=== PATIENT | male | born 1935 | race Caucasian/White ===

== ENCOUNTER 2018-02-02 13:02 | Inpatient (IN) ==
--- NOTE | 2018-02-02 13:15 | Emergency Department Note ---
Disposition Clinical Impression: Sepsis due to pneumonia, Acute kidney injury, Mucus plugging of bronchi, Supratherapeutic INR Leukocytosis Qualifiers: Leukocytosis type: unspecified Qualified Code(s): D72.829 - Elevated white blood cell count, unspecified Disposition: Admitted As Inpatient Condition: Fair Referrals: NONE,PCP [Non-Partnered Physician] - Time of Disposition: 15:25 Altered Mental Status HPI - General Stated Complaint: AMS Time Seen by Provider: 02/02/18 13:06 Source: patient, EMS Mode of arrival: EMS Limitations: physical limitation Nursing Notes Reviewed: Yes Vital Signs Reviewed: Yes - History of Present Illness HPI Narrative: Patient sent from the [facility] for altered mentation. He is not able to baseline. Was recently diagnosed with a suspected left lower lung pneumonia and was treated with Rocephin and Levaquin. Concern was conveyed that his PT/INR was greater than 10. The patient is alert upon arrival and denies pain. He is oriented to person but confused to place and time. Coarse non productive cough identified MD complaint: altered mental status - Related Data Home Medications Medication Instructions Recorded Confirmed Glimepiride [Amaryl] 2 mg PO 0800 01/21/16 01/21/16 Allergies Allergy/AdvReac Type Severity Reaction Status Date / Time No Known Allergies Allergy Verified 01/21/16 09:12 Limitations: ROS unobtainable due to patients medical condition Past Medical History - Past Medical History Source: old records reviewed Medical history: Reports: atrial fibrillation, cancer, DVT, diabetes, GERD, hyperlipidemia, hypertension, myocardial infarction, pulmonary embolus Surgical history: Reports: angioplasty/stent, IVC Filter, knee replacement, pacemaker/AICD Psychiatric history: Reports: no psych history - Social History Smoking Status: Former smoker Smokeless Tobacco Status: No Alcohol use: Reports: none Drug use: Reports: none Physical Exam Course nonproductive cough. - General Limitations: altered mental status, physical limitation General appearance: alert - Head Head exam: atraumatic - ENT ENT exam: normal exam - Neck Neck exam: Present: normal inspection, full ROM - Chest Chest inspection: Present: normal inspection, symmetric chest wall rise - Respiratory Respiratory exam: Present: other (Course crackles. 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 Absent: oriented X3 - Psychiatric Psychiatric exam: Present: flat affect - Skin Skin exam: Present: warm, dry, intact Course Course Narrative: Patient presents with altered mentation. He was being treated for pneumonia at the [facility] [place]. His INR was supratherapeutic prehospital. Concern for pneumonia and sepsis. I will also obtain a CT of his head given his supratherapeutic INR and concern for possible occult intracranial bleed. The patient will likely require admission - Consultations Consultation #1: call placed to inhouse pharmacist to discuss antibiotic options for healthcare associated pneumonia given his elevated PT/INR Consultation #2: Call placed to pulmonology on-call to discuss the possible need for bronchoscopy. Dr. Sanchez recleatha BIPAP and stepdown admission Vital Signs Temperature 98.1 F 02/02/18 13:05 Pulse Rate 70 02/02/18 13:05 Respiratory Rate 22 02/02/18 13:05 Blood Pressure 105/44 02/02/18 13:05 O2 Sat by Pulse Oximetry 99 02/02/18 13:05 Temperature 98.1 F 02/02/18 13:05 Pulse Rate 60 02/02/18 14:49 Respiratory Rate 16 02/02/18 14:49 Blood Pressure 108/44 02/02/18 14:49 O2 Sat by Pulse Oximetry 100 02/02/18 14:49 Oxygen Delivery Oxygen Delivery Nasal Cannula Altered Mental Status - Medical Records Medical records reviewed: Yes I reviewed the patient's medical records. - Lab Data Lab results reviewed: Yes I reviewed the patient's lab results. Result diagrams: 02/02/18 14:02 02/02/18 14:02 Lab Results 02/02/18 02/02/18 02/02/18 Range/Units 13:33 13:42 14:02 WBC 61.2 H* (4.3-11.1) K/mcL RBC 3.56 L (4.19-5.50) M/mcL Hgb 10.2 L (12.9-16.9) g/dL Hct 35.7 L (37.5-50.1) % MCV 100.3 H (83.0-100.0) fL MCH 28.7 (28.0-33.3) pg MCHC 28.6 L (31.6-35.5) g/dL RDW 15.7 H (11.5-14.5) % Plt Count 474 H (140-400) K/mcL MPV 12.4 (9.4-12.4) fL Seg Neutrophils % 87.0 % Band Neutrophils % 8.0 H (0-4) % Lymphocytes % 1.0 % Metamyelocytes % 1.0 H (0) % Myelocytes % 2.0 H (0) % Promyelocytes % 1.0 H (0) % Neutrophils # 58.1 H (1.6-8.9) K/mcL Lymphocytes # 0.6 (0.6-4.6) K/mcL Platelet Estimate Increased H (Normal) Large Platelets Present A (Not Present) Polychromasia 1+ A (Not Present) Poikilocytosis 1+ A (Not Present) Macrocytosis Present A (Not Present) PT (9.4-12.1) Seconds INR Sample Site R Radial ABG pH 7.27 L (7.32-7.45) pH Units ABG pCO2 51 H (35-45) mmHg ABG pO2 59 L (85-104) mmHg ABG HCO3 24 (21-27) mEq/L ABG Total CO2 25 (20-26) mEq/L ABG O2 Saturation 86 L (95-98) % ABG Base Excess -4 L (-2 to 3) mEq/L O2 Delivery Device Cannula Inspired O2 28.0 (1-15=lpm [id number]=%) Sodium (136-145) mEq/L Potassium (3.5-5.1) mEq/L Chloride (98-107) mEq/L Carbon Dioxide (23-29) mEq/L BUN (8-23) mg/dL Creatinine (0.70-1.30) mg/dL Est GFR ( Amer) (> 60) Est GFR (Non-Af Amer) (> 60) BUN/Creatinine Ratio (6-26) Glucose (70-105) mg/dL Calculated Osmolality (280-300) Lactic Acid (0.5-2.2) mmol/L Calcium (8.6-10.3) mg/dL Total Bilirubin (0.3-1.0) mg/dL AST (13-39) Units/L ALT (7-52) Units/L Alkaline Phosphatase (34-104) Units/L Troponin I (< 0.04) ng/mL Serum Total Protein (6.4-8.9) g/dL Albumin (3.5-5.7) g/dL Globulin (2.4-3.5) g/dL Albumin/Globulin Ratio (1.1-2.2) Urine Color [place] A (Yellow) Urine Clarity [place] A (Clear) Urine pH 5.0 (5.0-8.0) pH Units Ur Specific [place] 1.027 H (1.010-1.025) Urine Protein >=1000 H (Neg-Trace) mg/dL Urine Glucose (UA) 100 H (Normal) mg/dL Urine Ketones Trace H (Negative) mg/dL Urine Blood Negative (Negative) Urine Nitrite Negative (Negative) Urine Bilirubin Moderate H (Negative) Urine Urobilinogen 2.0 H (Normal) mg/dL Ur Leukocyte Esterase Small H (Negative) Urine Microscopic RBC 0-3 (0-3) per hpf Urine Microscopic WBC 50-100 H (0-3) per hpf Ur Squamous Epith Cells Many H (None-Few) per lpf Urine Bacteria None Seen (None-Few) per hpf 02/02/18 02/02/18 02/02/18 Range/Units 14:02 14:02 14:02 WBC (4.3-11.1) K/mcL RBC (4.19-5.50) M/mcL Hgb (12.9-16.9) g/dL Hct (37.5-50.1) % MCV (83.0-100.0) fL MCH (28.0-33.3) pg MCHC (31.6-35.5) g/dL RDW (11.5-14.5) % Plt Count (140-400) K/mcL MPV (9.4-12.4) fL Seg Neutrophils % % Band Neutrophils % (0-4) % Lymphocytes % % Metamyelocytes % (0) % Myelocytes % (0) % Promyelocytes % (0) % Neutrophils # (1.6-8.9) K/mcL Lymphocytes # (0.6-4.6) K/mcL Platelet Estimate (Normal) Large Platelets (Not Present) Polychromasia (Not Present) Poikilocytosis (Not Present) Macrocytosis (Not Present) PT 117.7 H* (9.4-12.1) Seconds INR 10.4 H* Sample Site ABG pH (7.32-7.45) pH Units ABG pCO2 (35-45) mmHg ABG pO2 (85-104) mmHg ABG HCO3 (21-27) mEq/L ABG Total CO2 (20-26) mEq/L ABG O2 Saturation (95-98) % ABG Base Excess (-2 to 3) mEq/L O2 Delivery Device Inspired O2 (1-15=lpm [id number]=%) Sodium 140 (136-145) mEq/L Potassium 5.2 H (3.5-5.1) mEq/L Chloride 108 H (98-107) mEq/L Carbon Dioxide 20 L (23-29) mEq/L BUN 58 H (8-23) mg/dL Creatinine 1.99 H (0.70-1.30) mg/dL Est GFR ( Amer) 39 L (> 60) Est GFR (Non-Af Amer) 32 L (> 60) BUN/Creatinine Ratio 29 H (6-26) Glucose 234 H (70-105) mg/dL Calculated Osmolality 314 H (280-300) Lactic Acid 1.6 (0.5-2.2) mmol/L Calcium 9.3 (8.6-10.3) mg/dL Total Bilirubin 1.0 (0.3-1.0) mg/dL AST 13 (13-39) Units/L ALT 10 (7-52) Units/L Alkaline Phosphatase 84 (34-104) Units/L Troponin I 0.19 H* (< 0.04) ng/mL Serum Total Protein 6.6 (6.4-8.9) g/dL Albumin 3.2 L (3.5-5.7) g/dL Globulin 3.4 (2.4-3.5) g/dL Albumin/Globulin Ratio 0.9 L (1.1-2.2) Urine Color (Yellow) Urine Clarity (Clear) Urine pH (5.0-8.0) pH Units Ur Specific [place] (1.010-1.025) Urine Protein (Neg-Trace) mg/dL Urine Glucose (UA) (Normal) mg/dL Urine Ketones (Negative) mg/dL Urine Blood (Negative) Urine Nitrite (Negative) Urine Bilirubin (Negative) Urine Urobilinogen (Normal) mg/dL Ur Leukocyte Esterase (Negative) Urine Microscopic RBC (0-3) per hpf Urine Microscopic WBC (0-3) per hpf Ur Squamous Epith Cells (None-Few) per lpf Urine Bacteria (None-Few) per hpf - Radiology Data Radiology results reviewed: Yes I reviewed the patient's radiology results. - EKG Data EKG attestation: Yes I reviewed and interpreted this EKG. EKG results narrative: Rate 71 IN-213 QRS 85 QT/QTC 384/406. Undetermined rhythm-possibly atrial paced TPA Checklist - LKW: 3-4.5 hrs Add. Warnings/Precautions Patient/family understanding: The patient/family members have been counseled and understood the risk, benefit , and alternatives of treatment. Critical Care Time Critical Care Time: Yes Total Critical Care Time: 60 Attestation: The high probability of a clinically significant, sudden or life threatening deterioration of the [] system(s) required my full and direct attention, intervention and personal management. The aggregate critical care time was [] minutes. This time is in addition to time spent performing reported procedures but includes the following: [] Data Review and interpretation [] Patient assessment and monitoring of vital signs [] Documentation [] Medication orders and management
[2018-02-02 13:39] LABS: ABG Base Excess -4 mEq/L (-2 to 3); ABG HCO3 24 mEq/L (21-27); ABG Oxygen Saturation 86 % (95-98); ABG PCO2 51 mmHg (35-45); ABG PH 7.27 pH Units (7.32-7.45); ABG PO2 59 mmHg (85-104); ABG TCO2 25 mEq/L (20-26)
[2018-02-02] MEDS ORDERED: Piperacillin/Tazobactam 3.375 GM in 0.9 % Sodium Chloride Mini Bag 100 ML IVPB ONE (13:40)
[2018-02-02 13:50] LABS: Bilirubin,Urine Moderate (Negative); Blood,Urine Negative (Negative); Clarity,Urine Turbid (Clear); Color,Urine Orange (Yellow); Glucose,Urine (UA) 100 mg/dL (Normal); Ketones,Urine Trace mg/dL (Negative); Leukocyte Esterase,Urine Small (Negative); Nitrite,Urine Negative (Negative); Protein,Urine >=1000 mg/dL (Neg-Trace); Specific Gravity,Urine 1.027 (1.010-1.025)
[2018-02-02 13:52] LABS: Bacteria,Urine None Seen per hpf (None-Few); Squamous Epithelial Cell,Urine Many per lpf (None-Few); WBC,Urine 50-100 per hpf (0-3)
[2018-02-02 14:03] LABS: RBC,Urine 0-3 per hpf (0-3)
[2018-02-02 14:18] LABS: Hematocrit 35.7 % (37.5-50.1); Hemoglobin 10.2 g/dL (12.9-16.9); Mean Corpuscular HGB Conc 28.6 g/dL (31.6-35.5); Mean Corpuscular Hemoglobin 28.7 pg (28.0-33.3); Mean Corpuscular Volume 100.3 fL (83.0-100.0); Mean Platelet Volume 12.4 fL (9.4-12.4); Platelet Count 474 K/mcL (140-400); Red Blood Count 3.56 M/mcL (4.19-5.50); Red Cell Distribution Width 15.7 % (11.5-14.5)
[2018-02-02 14:34] LABS: Albumin 3.2 g/dL (3.5-5.7); Albumin/Globulin Ratio 0.9 (1.1-2.2); Calcium 9.3 mg/dL (8.6-10.3); Globulin 3.4 g/dL (2.4-3.5); Potassium 5.2 mEq/L (3.5-5.1); Total Protein 6.6 g/dL (6.4-8.9)
[2018-02-02 14:39] LABS: Troponin I 0.19 ng/mL (< 0.04)
[2018-02-02 14:42] LABS: Lymphocytes # 0.6 K/mcL (0.6-4.6); Neutrophils # 58.1 K/mcL (1.6-8.9)
[2018-02-02 14:43] LABS: Large Platelets Present (Not Present); Macrocytosis Present (Not Present); Platelet Estimate Increased (Normal); Poikilocytosis 1+ (Not Present); Polychromasia 1+ (Not Present)
[2018-02-02] MEDS ORDERED: *HR* Phytonadione 5 MG TABLET PO ONE (15:28)
[2018-02-02 15:29] LABS: INR 10.4; Prothrombin Time 117.7 Seconds (9.4-12.1)
[2018-02-02] MEDS ORDERED: 0.9 % Sodium Chloride 1,000 ML IVC ONE (16:04)
[2018-02-02] MEDS ORDERED: Ringers Solution, Lactated 1,000 ML IVC ONE (16:14)
[2018-02-02] MEDS ORDERED: 0.9 % Sodium Chloride 1,000 ML IVC SCH (16:15)
[2018-02-02] MEDS ORDERED: Ringers Solution, Lactated 1,000 ML IVC SCH (16:15)
--- NOTE | 2018-02-02 16:28 | Pulmonology History & Physical ---
<Matteo Rodriguez - Last Filed: 02/02/18 16:41> Date of Encounter: 02/02/18 Time of Encounter: 16:27 Assessment and Plan (1) Sepsis due to pneumonia Current visit: Yes Status: Acute Systems based plan: - Patient seen and examined. - Labs, radiology, chart personally reviewed. 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 This is not the patient's baseline but is not far from his baseline, we will continue to monitor. Suspect this is likely from his respiratory and metabolic acidosis and sepsis Pulmonary: Significant the V/Q mismatch due to large left-sided effusion and loculation. We will give AccuNeb's every 2 hours through midnight and then 2 nebs every 2-4 hours as needed after that. Patient to be placed on BiPAP for positive pressure but was saturating fine on O2 via NC. Repeat ABG at 8 PM and in the morning. Patient will have bronchoscopy tomorrow and sample sent for definitive diagnosis of his pneumonia. Cardiovascular: Stable currently, we will monitor, we will start on pressors if necessary GI: Nothing by mouth and GI prophylaxis per routine Heme: Chemical DVT prophylaxis not indicated at this time due to supratherapeutic INR, so we will order EPCDs. Patient is also anemic, but we have no recent labs since 2014. His MCV is high, so I do not suspect any iron studies would be necessary. This could be due to sepsis, so we will continue to monitor. His INR is also very elevated at 10. He was given 15 mg of vitamin K for reversal. We will recheck his INR in the morning and give further product if needed. ID: Significant leukocytosis raises the question of new malignancy. Uric acid, LDH, haptoglobin, inflammatory markers, peripheral smear also ordered. Started on Vancomycin and Zosyn and plan to de-escalation. Avoiding fluoroquinolones as this was likely the source of elevating his INR to begin with. Bronchoscopy tomorrow and will send off for respiratory culture. Blood cultures drawn in the emergency department. Renal: Has an SCOT with mild electrolyte disturbances. Also has a non-gap metabolic acidosis that is being treated with IV fluid resuscitation with lactated Ringer's. He did not receive a 30 mL/kg IV fluid bolus because he did not have a systolic blood pressure less than 90 or a map less than 65 and received no fluids in the emergency department . In addition, we do want to avoid volume overload as he already has a significant pleural effusion and do not want to worsen his respiratory status. Endorcine: Monitor blood glucose Lines: all lines checked and no evidence of infections Skin: skin care to prevent pressure ulcers per nursing routine care Overall prognosis is poor (2) Acute kidney injury Current visit: Yes Status: Acute 1. 2/2 sepsis, IVF resuscitation with LR due to his hyperchloremic metabolic acidosis (3) Supratherapeutic INR Current visit: Yes Status: Acute 1. Treated with total of 15mg of IV-VitK 2. On coumadin for A-fib and h/o DVT so full reversal is reasonable given his critical condition (4) Respiratory acidosis Current visit: Yes Status: Acute 1. Accuneb for bronchodilation and opening airways Q2hr through midnight then DuoNebs Q2-4hr 2. BiPAP overnight 3. Recheck ABG in AM unless worsens then check sooner (5) Metabolic acidosis Current visit: Yes Status: Acute 1. AG 12, 14 corrected for albumin. Delta-Delta = 0.5 --> non-gap metabolic acidosis 2. Will reevaluate labs at 20:00 3. Will avoid NS due to his hyperchloremic metabolic acidosis but will give 1L bolus of LR followed by additional 1,400mL LR infused @ 175mL/hr to be completed at midnight for resuscitation History of Present Illness Chief complaint: AMS HPI: Mr. Hirsch is a 82 year old male patient sent from the [facility] for AMS. According to family, he is not at his baseline. He was recently diagnosed with a suspected left lower lobe pneumonia and was treated with Rocephin and Levaquin. Patient's INR was noted today to be greater than 10. He c/o cough and congestion but denies CP. Is having some SOB as well. Denies fevers, chills, abdominal pain, n/v/d. Past Med Surg Social Fam HX - Past Medical History Medical history: atrial fibrillation, cancer, DVT, diabetes, GERD, hyperlipidemia, hypertension, myocardial infarction, pulmonary embolus Additional medical history: tremors, mrsa, pvd, cataracts, bcc, Psychiatric history: no psych history - Past Surgical History Surgical History: angioplasty/stent, IVC Filter, knee replacement, pacemaker/ AICD Additional surgical history: hernia repair, left eye surgery, femoral artery atherectomy, right AKA - Social History Smoking Status: Former smoker Smokeless Tobacco Status: No Alcohol use: none Drug use: none Medications and Allergies Glimepiride [Amaryl] 2 mg PO 0800 01/21/16 [History] Acetaminophen [Non-Aspirin] 325 mg PO Q6H PRN 02/02/18 [History] Aspirin [Lo-Dose Aspirin EC] 81 mg PO DAILY 02/02/18 [History] Bimatoprost [Lumigan] 1 drop OP HS 02/02/18 [History] Brinzolamide/Brimonidine Tart [Simbrinza 1%-0.2% Eye Drops] 1 drop OP DAILY [History] Cyanocobalamin (B-12) [Vitamin B12] 2,000 mcg PO QAM 02/02/18 [History] Furosemide [Lasix] 40 mg PO DAILY 02/02/18 [History] Gabapentin [Neurontin] 300 mg PO 0800,1300 02/02/18 [History] Gabapentin [Neurontin] 600 mg PO HS 02/02/18 [History] HYDROcodone/Acet 7.5/325 mg [Wesley 7.5-325 mg] 1 tab PO Q8H PRN 02/02/18 [ History] Insulin ASPART [Novolog Flexpen] 0 unit SQ TID PRN 02/02/18 [History] Ipratropium/Albuterol Neb [Duoneb] 3 ml IH Q4HR 02/02/18 [History] Polyethylene Glycol 3350 [MiraLAX Powder Bulk 17.9 Oz] 1 scoop PO DAILY [History] Sennosides/Docusate Sodium [Senna Plus] 1 each PO DAILY 02/02/18 [History] Simvastatin [Zocor] 5 mg PO HS 02/02/18 [History] Timolol [Betimol] 1 drop OP BID 02/02/18 [History] cefTRIAXone [Rocephin] 1,000 mg IVPB DAILY 02/02/18 [History] levoFLOXacin [Levaquin] 500 mg PO DAILY 02/02/18 [History] 3 Allergy/AdvReac Type Severity Reaction Status Date / Time No Known Allergies Allergy Verified 01/21/16 09:12 All Systems: The remainder of the systems were reviewed and are negative Review of Systems: As reviewed in the HPI. All other systems reviewed are negative or normal. Physical Examination Vital Signs: Vital Signs, Last 4 Hours Resp BP 02/02/18 16:13 20 123/47 General appearance: no acute distress, alert (But sleepy) Eyes: nonicteric ENT: oropharynx dry Neck: supple Effort: mildly labored Inspection: normal Auscultation: right: rhonchi, bilateral: diminished breath sounds (L > R) Percussion: left: dull Cardiovascular: regular rate and rhythm Gastrointestinal: normoactive bowel sounds Integumentary: normal Extremities: no cyanosis, no edema Musculoskeletal: no deformities pupils equal and round, other (Patient alert to person but not place or time. Does have a history of dementia, but is not at baseline) Results - Laboratory Findings CBC and BMP: 02/02/18 14:02 02/02/18 14:02 ABG ABG pH 7.27 pH Units (7.32-7.45) L 02/02/18 13:33 ABG pCO2 51 mmHg (35-45) H 02/02/18 13:33 ABG pO2 59 mmHg (85-104) L 02/02/18 13:33 ABG O2 Saturation 86 % (95-98) L 02/02/18 13:33 PT/INR, D-dimer PT 117.7 Seconds (9.4-12.1) H* 02/02/18 14:02 Abnormal lab findings: Abnormal lab results WBC 61.2 K/mcL (4.3-11.1) H* 02/02/18 14:02 RBC 3.56 M/mcL (4.19-5.50) L 02/02/18 14:02 Hgb 10.2 g/dL (12.9-16.9) L 02/02/18 14:02 Hct 35.7 % (37.5-50.1) L 02/02/18 14:02 MCV 100.3 fL (83.0-100.0) H 02/02/18 14:02 MCHC 28.6 g/dL (31.6-35.5) L 02/02/18 14:02 RDW 15.7 % (11.5-14.5) H 02/02/18 14:02 Plt Count 474 K/mcL (140-400) H 02/02/18 14:02 Band Neutrophils % 8.0 % (0-4) H 02/02/18 14:02 Metamyelocytes % 1.0 % (0) H 02/02/18 14:02 Myelocytes % 2.0 % (0) H 02/02/18 14:02 Promyelocytes % 1.0 % (0) H 02/02/18 14:02 Neutrophils # 58.1 K/mcL (1.6-8.9) H 02/02/18 14:02 Platelet Estimate Increased (Normal) H 02/02/18 14:02 Large Platelets Present (Not Present) A 02/02/18 14:02 Polychromasia 1+ (Not Present) A 02/02/18 14:02 Poikilocytosis 1+ (Not Present) A 02/02/18 14:02 Macrocytosis Present (Not Present) A 02/02/18 14:02 ESR 98 mm/hr (0-10) H 02/02/18 14:02 PT 117.7 Seconds (9.4-12.1) H* 02/02/18 14:02 INR 10.4 H* 02/02/18 14:02 ABG pH 7.27 pH Units (7.32-7.45) L 02/02/18 13:33 ABG pCO2 51 mmHg (35-45) H 02/02/18 13:33 ABG pO2 59 mmHg (85-104) L 02/02/18 13:33 ABG O2 Saturation 86 % (95-98) L 02/02/18 13:33 ABG Base Excess -4 mEq/L (-2 to 3) L 02/02/18 13:33 Potassium 5.2 mEq/L (3.5-5.1) H 02/02/18 14:02 Chloride 108 mEq/L (98-107) H 02/02/18 14:02 Carbon Dioxide 20 mEq/L (23-29) L 02/02/18 14:02 BUN 58 mg/dL (8-23) H 02/02/18 14:02 Creatinine 1.99 mg/dL (0.70-1.30) H 02/02/18 14:02 Est GFR ( Amer) 39 (> 60) L 02/02/18 14:02 Est GFR (Non-Af Amer) 32 (> 60) L 02/02/18 14:02 BUN/Creatinine Ratio 29 (6-26) H 02/02/18 14:02 Glucose 234 mg/dL (70-105) H 02/02/18 14:02 Calculated Osmolality 314 (280-300) H 02/02/18 14:02 Troponin I 0.19 ng/mL (< 0.04) H* 02/02/18 14:02 Albumin 3.2 g/dL (3.5-5.7) L 02/02/18 14:02 Albumin/Globulin Ratio 0.9 (1.1-2.2) L 02/02/18 14:02 Urine Color [place] (Yellow) A 02/02/18 13:42 Urine Clarity Turbid (Clear) A 02/02/18 13:42 Ur Specific [place] 1.027 (1.010-1.025) H 02/02/18 13:42 Urine Protein >=1000 mg/dL (Neg-Trace) H 02/02/18 13:42 Urine Glucose (UA) 100 mg/dL (Normal) H 02/02/18 13:42 Urine Ketones Trace mg/dL (Negative) H 02/02/18 13:42 Urine Bilirubin Moderate (Negative) H 02/02/18 13:42 Urine Urobilinogen 2.0 mg/dL (Normal) H 02/02/18 13:42 Ur Leukocyte Esterase Small (Negative) H 02/02/18 13:42 Urine Microscopic WBC 50-100 per hpf (0-3) H 02/02/18 13:42 Ur Squamous Epith Cells Many per lpf (None-Few) H 02/02/18 13:42 <Kenzie Sanchez S - Last Filed: 02/02/18 21:44> Date of Encounter: 02/02/18 History of Present Illness HPI: Mr. Hirsch is a 82 year old male All Systems: The remainder of the systems were reviewed and are negative Physical Examination Vital Signs: Vital Signs, Last 4 Hours Temp Pulse Resp BP Pulse Ox 02/02/18 20:15 60 02/02/18 20:00 60 16 110/91 95 02/02/18 19:39 14 132/67 91 02/02/18 19:00 97.2 F L 60 17 132/67 94 02/02/18 18:51 60 24 109/65 97 02/02/18 17:30 60 26 125/73 100 Results - Laboratory Findings CBC and BMP: 02/02/18 19:44 02/02/18 19:44 ABG ABG pH 7.19 pH Units (7.32-7.45) L* 02/02/18 20:52 ABG pCO2 65 mmHg (35-45) H 02/02/18 20:52 ABG pO2 72 mmHg (85-104) L 02/02/18 20:52 ABG O2 Saturation 89 % (95-98) L 02/02/18 20:52 PT/INR, D-dimer PT 129.0 Seconds (9.4-12.1) H* 02/02/18 19:44 Abnormal lab findings: Abnormal lab results WBC 63.3 K/mcL (4.3-11.1) H* 02/02/18 19:44 RBC 3.59 M/mcL (4.19-5.50) L 02/02/18 19:44 Hgb 10.3 g/dL (12.9-16.9) L 02/02/18 19:44 Hct 35.5 % (37.5-50.1) L 02/02/18 19:44 MCHC 29.0 g/dL (31.6-35.5) L 02/02/18 19:44 RDW 15.7 % (11.5-14.5) H 02/02/18 19:44 Plt Count 478 K/mcL (140-400) H 02/02/18 19:44 Metamyelocytes % 2.0 % (0) H 02/02/18 19:44 Myelocytes % 3.0 % (0) H 02/02/18 19:44 Promyelocytes % 1.0 % (0) H 02/02/18 14:02 Neutrophils # 56.3 K/mcL (1.6-8.9) H 02/02/18 19:44 Nucleated RBCs/100 WBC 0.1 /100 WBC (0) H 02/02/18 19:44 Platelet Estimate Increased (Normal) H 02/02/18 14:02 Large Platelets Present (Not Present) A 02/02/18 14:02 Polychromasia 1+ (Not Present) A 02/02/18 14:02 Poikilocytosis 1+ (Not Present) A 02/02/18 14:02 Macrocytosis Present (Not Present) A 02/02/18 14:02 ESR 98 mm/hr (0-10) H 02/02/18 14:02 PT 129.0 Seconds (9.4-12.1) H* 02/02/18 19:44 INR 11.4 H* 02/02/18 19:44 Fibrinogen 819 mg/dL (169-393) H* 02/02/18 19:44 ABG pH 7.19 pH Units (7.32-7.45) L* 02/02/18 20:52 ABG pCO2 65 mmHg (35-45) H 02/02/18 20:52 ABG pO2 72 mmHg (85-104) L 02/02/18 20:52 ABG Total CO2 27 mEq/L (20-26) H 02/02/18 20:52 ABG O2 Saturation 89 % (95-98) L 02/02/18 20:52 ABG Base Excess -4 mEq/L (-2 to 3) L 02/02/18 20:52 Chloride 108 mEq/L (98-107) H 02/02/18 19:44 Carbon Dioxide 22 mEq/L (23-29) L 02/02/18 19:44 BUN 59 mg/dL (8-23) H 02/02/18 19:44 Creatinine 1.98 mg/dL (0.70-1.30) H 02/02/18 19:44 Est GFR ( Amer) 39 (> 60) L 02/02/18 19:44 Est GFR (Non-Af Amer) 33 (> 60) L 02/02/18 19:44 BUN/Creatinine Ratio 30 (6-26) H 02/02/18 19:44 Glucose 193 mg/dL (70-105) H 02/02/18 19:44 POC Glucose 195 mg/dL (70-99) H 02/02/18 16:41 Calculated Osmolality 316 (280-300) H 02/02/18 19:44 Lactic Acid 2.5 mmol/L (0.5-2.2) H 02/02/18 19:44 Uric Acid 11.6 mg/dL (2.3-7.6) H 02/02/18 14:02 Phosphorus 5.5 mg/dL (2.7-4.5) H 02/02/18 14:02 Magnesium 2.8 mg/dL (1.6-2.6) H 02/02/18 14:02 AST 12 Units/L (13-39) L 02/02/18 19:44 Troponin I 0.24 ng/mL (< 0.04) H* 02/02/18 19:44 C-Reactive Protein 224 mg/L (Less than 10) H 02/02/18 14:02 Albumin 3.2 g/dL (3.5-5.7) L 02/02/18 19:44 Globulin 3.6 g/dL (2.4-3.5) H 02/02/18 19:44 Albumin/Globulin Ratio 0.9 (1.1-2.2) L 02/02/18 19:44 Urine Color [place] (Yellow) A 02/02/18 13:42 Urine Clarity Turbid (Clear) A 02/02/18 13:42 Ur Specific [place] 1.027 (1.010-1.025) H 02/02/18 13:42 Urine Protein >=1000 mg/dL (Neg-Trace) H 02/02/18 13:42 Urine Glucose (UA) 100 mg/dL (Normal) H 02/02/18 13:42 Urine Ketones Trace mg/dL (Negative) H 02/02/18 13:42 Urine Bilirubin Moderate (Negative) H 02/02/18 13:42 Urine Urobilinogen 2.0 mg/dL (Normal) H 02/02/18 13:42 Ur Leukocyte Esterase Small (Negative) H 02/02/18 13:42 Urine Microscopic WBC 50-100 per hpf (0-3) H 02/02/18 13:42 Ur Squamous Epith Cells Many per lpf (None-Few) H 02/02/18 13:42 - Attending Attestation I saw and evaluated this patient and my medical decision-making was reviewed with the Resident Physician. I agree with the documented findings, disposition and treatment plan as described except to the extent set forth below. We independently had [id number] contact with the patient I spent 40 minutes of Critical Care time with this patient. It involved decision making of high complexity to assess, manipulate, and support vital organ system failure and/or to prevent further life threatening deterioration of the patient's condition. The time involved in the performance of separately reportable procedures was not counted toward critical care time. Patient seen and examined at bedside Labs, radiology, chart personally reviewed. Management was reviewed during multidisciplinary critical care rounds. 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 Pulm: Patient developed Acute on chronic hypoxic respiratory failure and also with Acute hypercarbia with left lung collapse due to mucus plugging Keep him NPO will do Bronchoscopy in the morning . To try aggressive bronchopulmonary toileting . Bilateral Lung consolidation with left lung collapse , patient has small loculated effusion patient severe coagulopathic will consult IR if the pocket progresses Cards: Patient is hemodynamically stable , patient is presenting with sepsis FEN-GI: NPO now on BIPAP tomorrow he is planned for Renal: SCOT secondary to volume depletion Vs Sepsis ID: Patient needs broad spectrum coverage for pneumonia all culture sent Heme/Onc: Labs reviewed no need of thromboprophylaxis because of INR being high Endo: Glucose Monitored Integ/MSK: Skin Care per routine ICU Nursing Protocol to prevent ulcers. Lines: All lines examined without evidence of infection : Dispo: Critically ill CODE:DNRA DNI but during brnchoscopy will reverse the code .
[2018-02-02 16:53] LABS: Magnesium 2.8 mg/dL (1.6-2.6); Phosphorous 5.5 mg/dL (2.7-4.5); Uric Acid 11.6 mg/dL (2.3-7.6)
[2018-02-02] MEDS: Albuterol Neb 1.25 MG/3 ML VIAL IH SCH ×4 (17:11→23:22)
--- NOTE | 2018-02-02 17:38 | Event Note ---
Date of Encounter: 02/02/18 Time of Encounter: 17:30 Spoke with Daughter according to patient wishes he doesnt want CPR or intubation . But for Bronchoscopy they are ok with to reverse code status temporarily . The code status was changed to DNRA -DNI
[2018-02-02] MEDS: Ringers Solution, Lactated 1,000 ML IVC SCH ×2 (18:39→19:56)
[2018-02-02] MEDS: Famotidine 20 MG/2 ML VIAL IVP SCH (18:40)
[2018-02-02] MEDS ORDERED: Ondansetron 4 MG/2 ML VIAL ONE (19:35)
[2018-02-02] MEDS ORDERED: Ondansetron 4 MG/2 ML VIAL IVP ONE (19:41)
[2018-02-02 20:01] LABS: Nucleated Red Blood Cells 0.1 /100 WBC (0); Red Cell Distribution Width 15.7 % (11.5-14.5)
[2018-02-02 20:03] LABS: Hematocrit 35.5 % (37.5-50.1); Hemoglobin 10.3 g/dL (12.9-16.9); Mean Corpuscular Hemoglobin 28.7 pg (28.0-33.3); Mean Corpuscular Volume 98.9 fL (83.0-100.0); Mean Platelet Volume 12.4 fL (9.4-12.4); Platelet Count 478 K/mcL (140-400); Red Blood Count 3.59 M/mcL (4.19-5.50)
[2018-02-02 20:21] LABS: Albumin 3.2 g/dL (3.5-5.7); Albumin/Globulin Ratio 0.9 (1.1-2.2); Calcium 9.4 mg/dL (8.6-10.3); Globulin 3.6 g/dL (2.4-3.5); Potassium 4.9 mEq/L (3.5-5.1); Total Protein 6.8 g/dL (6.4-8.9)
[2018-02-02 20:27] LABS: INR 11.4
[2018-02-02 20:34] LABS: Lymphocytes # 3.2 K/mcL (0.6-4.6); Monocytes # 0.6 K/mcL (0.0-1.3); Neutrophils # 56.3 K/mcL (1.6-8.9)
[2018-02-02 20:57] LABS: ABG Base Excess -4 mEq/L (-2 to 3); ABG HCO3 25 mEq/L (21-27); ABG Oxygen Saturation 89 % (95-98); ABG PCO2 65 mmHg (35-45); ABG PH 7.19 pH Units (7.32-7.45); ABG PO2 72 mmHg (85-104); ABG TCO2 27 mEq/L (20-26); Blood Gas Modality NIV; Blood Gas PEEP 8 cm H2O
[2018-02-03] MEDS: Albuterol Neb 1.25 MG/3 ML VIAL IH SCH (01:20)
[2018-02-03 03:16] LABS: Nucleated Red Blood Cells 0.1 /100 WBC (0); Red Cell Distribution Width 15.8 % (11.5-14.5)
[2018-02-03 03:18] LABS: Hematocrit 33.4 % (37.5-50.1); Hemoglobin 9.6 g/dL (12.9-16.9); Immature Platelets 14.5 % (1.1-6.1); Mean Corpuscular HGB Conc 28.7 g/dL (31.6-35.5); Mean Corpuscular Hemoglobin 28.4 pg (28.0-33.3); Mean Corpuscular Volume 98.8 fL (83.0-100.0); Mean Platelet Volume 12.2 fL (9.4-12.4); Platelet Count 473 K/mcL (140-400); Red Blood Count 3.38 M/mcL (4.19-5.50)
[2018-02-03 03:36] LABS: Potassium 4.8 mEq/L (3.5-5.1)
[2018-02-03 03:39] LABS: INR 11.6; Prothrombin Time 130.7 Seconds (9.4-12.1)
[2018-02-03 03:48] LABS: Platelet Estimate Increased (Normal)
[2018-02-03 03:52] LABS: ABG Base Excess -2 mEq/L (-2 to 3); ABG HCO3 26 mEq/L (21-27); ABG Oxygen Saturation 87 % (95-98); ABG PCO2 59 mmHg (35-45); ABG PH 7.25 pH Units (7.32-7.45); ABG PO2 63 mmHg (85-104); ABG TCO2 28 mEq/L (20-26)
[2018-02-03] MEDS: Famotidine 20 MG/2 ML VIAL IVP SCH (04:54)
[2018-02-03] MEDS ORDERED: Lidocaine Viscous Oral Soln 15 ML SOLUTION ONE (07:10)
--- NOTE | 2018-02-03 07:39 | Pulmonology Progress Note ---
<Matteo Rodriguez - Last Filed: 02/03/18 10:30> Date of Encounter: 02/03/18 Time of Encounter: 07:39 Assessment and Plan (1) Sepsis due to pneumonia Current Visit: Yes Status: Acute Systems based plan: - Patient seen and examined. - Labs, radiology, chart personally reviewed. MESSENGER FLOORPERSON: Back to baseline for patient, family present and agrees Pulmonary: Significant V/Q mismatch due to large left-sided effusion and loculation suspected to be from large mucous plug vs malignancy. Continue BiPAP. Bronchoscopy today. ABG last night showed a worsening respiratory acidosis. Keeping the patient on BiPAP, started to correct this and he is improving, we will continue to monitor Cardiovascular: Monitor pressure closely. Patient went into A-fib with RVR after bronch. Giving Lopressor 5mg Q5min x2 and if doesn't repspond, will start on Cardizem gtt. Ordering stat echo today as well. Last EF in 2016 was 45% so do feel it's safe to use CCB. GI: Nothing by mouth and GI prophylaxis per routine Heme: EPCDs due to high INR. INR remains very elevated at 10, 4U FFP ordered last night and last unit is going in now, will recheck INR in a few hours. He was given 15 mg of vitamin K for reversal yesterday but has not been 24 hours yet. No active bleeding ID: Significant and increasing leukocytosis raises the question of new malignancy vs severe sepsis. Uric acid was high, LDH normal, haptoglobin pending, inflammatory markers moderately elevated. Peripheral smear also ordered. Started on Vancomycin and Zosyn and plan to de-escalation. Avoiding fluoroquinolones as this was likely the source of elevating his INR to begin with. Bronchoscopy today with thick secretions. Resp culture from bronch and blood cultures drawn in the emergency department. Renal: Has an SCOT with mild electrolyte disturbances. Also has a non-gap metabolic acidosis that is being treated with IV fluid resuscitation with lactated Ringer's. He got 2.5L yesterday and will continue gentle rehydration today. In addition, we do want to avoid volume overload as he already has a significant pleural effusion and do not want to worsen his respiratory status. Endorcine: Monitor blood glucose Lines: all lines checked and no evidence of infections Skin: skin care to prevent pressure ulcers per nursing routine care Overall prognosis is extremely poor (2) Acute kidney injury Current Visit: Yes Status: Acute 1. 2/2 sepsis, IVF resuscitation with LR due to his hyperchloremic metabolic acidosis (3) Supratherapeutic INR Current Visit: Yes Status: Acute 1. Treated with total of 15mg of IV-VitK 2. On coumadin for A-fib and h/o DVT so full reversal is reasonable given his critical condition 3. Gave 4U FFP last night and will recheck INR 2 hours after last bag is in. (4) Respiratory acidosis Current Visit: Yes Status: Acute 1. Improving on BiPAP 2. Now post-bronch and will get CXR in 6 hours and repeat ABG (5) Metabolic acidosis Current Visit: Yes Status: Acute 1. non-AG metabolic acidosis so will avoid NS due to his hyperchloremic metabolic acidosis but will give MIVF via LR Subjective Principal diagnosis: sepsis from pneumonia Interval history: Patient clinically did well overnight. However, lab work is worsening. Had a discussion with the family and he is now DNR CCA DNI. However, they would be okay with intubation if needed. Immediately after bronchoscopy today. No fevers and he denies pain. Has tolerated BiPAP well Objective PUL Vital signs: Last Vital Signs Temp 97.2 F L 02/03/18 06:41 Pulse 60 02/03/18 06:41 Resp 17 02/03/18 06:41 BP 129/52 02/03/18 06:41 Pulse Ox 98 02/03/18 06:41 General appearance: no acute distress Eyes: nonicteric ENT: oropharynx dry Neck: supple Effort: mildly labored Auscultation: left: diminished breath sounds, bilateral: wheezes Cardiovascular: regular rate and rhythm Gastrointestinal: normoactive bowel sounds, non-distended Integumentary: normal Extremities: no cyanosis, no edema, no clubbing, other (R-AKA) Musculoskeletal: no deformities, ROM normal normal mental status, non-focal exam Results - Laboratory Findings CBC and BMP: 02/03/18 03:06 02/03/18 03:06 ABG ABG pH 7.25 pH Units (7.32-7.45) L 02/03/18 03:49 ABG pCO2 59 mmHg (35-45) H 02/03/18 03:49 ABG pO2 63 mmHg (85-104) L 02/03/18 03:49 ABG O2 Saturation 87 % (95-98) L 02/03/18 03:49 PT/INR, D-dimer PT 130.7 Seconds (9.4-12.1) H* 02/03/18 03:06 Abnormal lab findings: Abnormal lab results WBC 75.0 K/mcL (4.3-11.1) H* 02/03/18 03:06 RBC 3.38 M/mcL (4.19-5.50) L 02/03/18 03:06 Hgb 9.6 g/dL (12.9-16.9) L 02/03/18 03:06 Hct 33.4 % (37.5-50.1) L 02/03/18 03:06 MCHC 28.7 g/dL (31.6-35.5) L 02/03/18 03:06 RDW 15.8 % (11.5-14.5) H 02/03/18 03:06 Plt Count 473 K/mcL (140-400) H 02/03/18 03:06 Metamyelocytes % 2.0 % (0) H 02/02/18 19:44 Myelocytes % 8.0 % (0) H 02/03/18 03:06 Promyelocytes % 1.0 % (0) H 02/02/18 14:02 Neutrophils # 69.0 K/mcL (1.6-8.9) H 02/03/18 03:06 Lymphocytes # 0.0 K/mcL (0.6-4.6) L 02/03/18 03:06 Nucleated RBCs/100 WBC 0.1 /100 WBC (0) H 02/03/18 03:06 Platelet Estimate Increased (Normal) H 02/03/18 03:06 Large Platelets Present (Not Present) A 02/02/18 14:02 Immature Plt Fraction 14.5 % (1.1-6.1) H 02/03/18 03:06 Polychromasia 1+ (Not Present) A 02/02/18 14:02 Poikilocytosis 1+ (Not Present) A 02/02/18 14:02 Macrocytosis Present (Not Present) A 02/02/18 14:02 ESR 98 mm/hr (0-10) H 02/02/18 14:02 PT 130.7 Seconds (9.4-12.1) H* 02/03/18 03:06 INR 11.6 H* 02/03/18 03:06 Fibrinogen 819 mg/dL (169-393) H* 02/02/18 19:44 ABG pH 7.25 pH Units (7.32-7.45) L 02/03/18 03:49 ABG pCO2 59 mmHg (35-45) H 02/03/18 03:49 ABG pO2 63 mmHg (85-104) L 02/03/18 03:49 ABG Total CO2 28 mEq/L (20-26) H 02/03/18 03:49 ABG O2 Saturation 87 % (95-98) L 02/03/18 03:49 Chloride 109 mEq/L (98-107) H 02/03/18 03:06 Carbon Dioxide 22 mEq/L (23-29) L 02/03/18 03:06 BUN 63 mg/dL (8-23) H 02/03/18 03:06 Creatinine 2.00 mg/dL (0.70-1.30) H 02/03/18 03:06 Est GFR ( Amer) 39 (> 60) L 02/03/18 03:06 Est GFR (Non-Af Amer) 32 (> 60) L 02/03/18 03:06 BUN/Creatinine Ratio 32 (6-26) H 02/03/18 03:06 Glucose 180 mg/dL (70-105) H 02/03/18 03:06 POC Glucose 200 mg/dL (70-99) H 02/02/18 23:30 Calculated Osmolality 315 (280-300) H 02/03/18 03:06 Uric Acid 11.6 mg/dL (2.3-7.6) H 02/02/18 14:02 Phosphorus 5.5 mg/dL (2.7-4.5) H 02/02/18 14:02 Magnesium 2.8 mg/dL (1.6-2.6) H 02/02/18 14:02 AST 12 Units/L (13-39) L 02/02/18 19:44 Troponin I 0.21 ng/mL (< 0.04) H* 02/03/18 03:06 C-Reactive Protein 224 mg/L (Less than 10) H 02/02/18 14:02 Albumin 3.2 g/dL (3.5-5.7) L 02/02/18 19:44 Globulin 3.6 g/dL (2.4-3.5) H 02/02/18 19:44 Albumin/Globulin Ratio 0.9 (1.1-2.2) L 02/02/18 19:44 Urine Color [place] (Yellow) A 02/02/18 13:42 Urine Clarity Turbid (Clear) A 02/02/18 13:42 Ur Specific [place] 1.027 (1.010-1.025) H 02/02/18 13:42 Urine Protein >=1000 mg/dL (Neg-Trace) H 02/02/18 13:42 Urine Glucose (UA) 100 mg/dL (Normal) H 02/02/18 13:42 Urine Ketones Trace mg/dL (Negative) H 02/02/18 13:42 Urine Bilirubin Moderate (Negative) H 02/02/18 13:42 Urine Urobilinogen 2.0 mg/dL (Normal) H 02/02/18 13:42 Ur Leukocyte Esterase Small (Negative) H 02/02/18 13:42 Urine Microscopic WBC 50-100 per hpf (0-3) H 02/02/18 13:42 Ur Squamous Epith Cells Many per lpf (None-Few) H 02/02/18 13:42 - Microbiology Findings Microbiology Findings: Microbiology, Last 48 Hours 02/02/18 15:53 Blood Culture - Preliminary Peripheral Venipuncture Culture is incubating and being continuously monitored for growth. Final report to follow. - Clinical Findings Intake & Output: Intake & Output 02/02/18 02/02/18 02/03/18 15:59 23:59 07:59 Intake Total 1051 / 1051 1600 / 1600 Output Total 200 / 200 80 / 80 Balance 851 / 851 1520 / 1520 - VTE Documentation of Mechanical Device: Intermittent pneumatic compression device Consult Discharge Plan - Plan Referrals: Jaleel Guevara MD [Primary Care Provider] - <Kenzie Sanchez - Last Filed: 02/04/18 00:25> Date of Encounter: 02/04/18 Objective PUL Vital signs: Last Vital Signs Temp 97.6 F 02/04/18 00:00 Pulse 60 02/04/18 00:00 Resp 18 02/04/18 00:00 BP 128/63 07/01/18 00:00 Pulse Ox 95 02/04/18 00:00 Results - Laboratory Findings CBC and BMP: 02/03/18 03:06 02/03/18 03:06 ABG ABG pH 7.25 pH Units (7.32-7.45) L 02/03/18 03:49 ABG pCO2 59 mmHg (35-45) H 02/03/18 03:49 ABG pO2 63 mmHg (85-104) L 02/03/18 03:49 ABG O2 Saturation 87 % (95-98) L 02/03/18 03:49 PT/INR, D-dimer PT 130.7 Seconds (9.4-12.1) H* 02/03/18 03:06 Abnormal lab findings: Abnormal lab results WBC 75.0 K/mcL (4.3-11.1) H* 02/03/18 03:06 RBC 3.38 M/mcL (4.19-5.50) L 02/03/18 03:06 Hgb 9.6 g/dL (12.9-16.9) L 02/03/18 03:06 Hct 33.4 % (37.5-50.1) L 02/03/18 03:06 MCHC 28.7 g/dL (31.6-35.5) L 02/03/18 03:06 RDW 15.8 % (11.5-14.5) H 02/03/18 03:06 Plt Count 473 K/mcL (140-400) H 02/03/18 03:06 Metamyelocytes % 2.0 % (0) H 02/02/18 19:44 Myelocytes % 8.0 % (0) H 02/03/18 03:06 Promyelocytes % 1.0 % (0) H 02/02/18 14:02 Neutrophils # 69.0 K/mcL (1.6-8.9) H 02/03/18 03:06 Lymphocytes # 0.0 K/mcL (0.6-4.6) L 02/03/18 03:06 Nucleated RBCs/100 WBC 0.1 /100 WBC (0) H 02/03/18 03:06 Platelet Estimate Increased (Normal) H 02/03/18 03:06 Large Platelets Present (Not Present) A 02/02/18 14:02 Immature Plt Fraction 14.5 % (1.1-6.1) H 02/03/18 03:06 Polychromasia 1+ (Not Present) A 02/02/18 14:02 Poikilocytosis 1+ (Not Present) A 02/02/18 14:02 Macrocytosis Present (Not Present) A 02/02/18 14:02 ESR 98 mm/hr (0-10) H 02/02/18 14:02 PT 130.7 Seconds (9.4-12.1) H* 02/03/18 03:06 INR 11.6 H* 02/03/18 03:06 Fibrinogen 819 mg/dL (169-393) H* 02/02/18 19:44 ABG pH 7.25 pH Units (7.32-7.45) L 02/03/18 03:49 ABG pCO2 59 mmHg (35-45) H 02/03/18 03:49 ABG pO2 63 mmHg (85-104) L 02/03/18 03:49 ABG Total CO2 28 mEq/L (20-26) H 02/03/18 03:49 ABG O2 Saturation 87 % (95-98) L 02/03/18 03:49 Chloride 109 mEq/L (98-107) H 02/03/18 03:06 Carbon Dioxide 22 mEq/L (23-29) L 02/03/18 03:06 BUN 63 mg/dL (8-23) H 02/03/18 03:06 Creatinine 2.00 mg/dL (0.70-1.30) H 02/03/18 03:06 Est GFR ( Amer) 39 (> 60) L 02/03/18 03:06 Est GFR (Non-Af Amer) 32 (> 60) L 02/03/18 03:06 BUN/Creatinine Ratio 32 (6-26) H 02/03/18 03:06 Glucose 180 mg/dL (70-105) H 02/03/18 03:06 POC Glucose 200 mg/dL (70-99) H 02/02/18 23:30 Calculated Osmolality 315 (280-300) H 02/03/18 03:06 Uric Acid 11.6 mg/dL (2.3-7.6) H 02/02/18 14:02 Phosphorus 5.5 mg/dL (2.7-4.5) H 02/02/18 14:02 Magnesium 2.8 mg/dL (1.6-2.6) H 02/02/18 14:02 AST 12 Units/L (13-39) L 02/02/18 19:44 Troponin I 0.21 ng/mL (< 0.04) H* 02/03/18 03:06 C-Reactive Protein 224 mg/L (Less than 10) H 02/02/18 14:02 Albumin 3.2 g/dL (3.5-5.7) L 02/02/18 19:44 Globulin 3.6 g/dL (2.4-3.5) H 02/02/18 19:44 Albumin/Globulin Ratio 0.9 (1.1-2.2) L 02/02/18 19:44 Urine Color [place] (Yellow) A 02/02/18 13:42 Urine Clarity Turb[place] (Clear) A 02/02/18 13:42 Ur Specific [place] 1.027 (1.010-1.025) H 02/02/18 13:42 Urine Protein >=1000 mg/dL (Neg-Trace) H 02/02/18 13:42 Urine Glucose (UA) 100 mg/dL (Normal) H 02/02/18 13:42 Urine Ketones Trace mg/dL (Negative) H 02/02/18 13:42 Urine Bilirubin Moderate (Negative) H 02/02/18 13:42 Urine Urobilinogen 2.0 mg/dL (Normal) H 02/02/18 13:42 Ur Leukocyte Esterase Small (Negative) H 02/02/18 13:42 Urine Microscopic WBC 50-100 per hpf (0-3) H 02/02/18 13:42 Ur Squamous Epith Cells Many per lpf (None-Few) H 02/02/18 13:42 Fluid Appearance Cloudy (Clear) A 02/03/18 09:50 - Microbiology Findings Microbiology Findings: Microbiology, Last 48 Hours 02/03/18 09:50 Gram Stain - Final Left Lower Lobe Lung 02/03/18 09:50 Gram Stain - Final Lung - Right 02/02/18 15:53 Blood Culture - Preliminary Peripheral Venipuncture Culture is incubating and being continuously monitored for growth. Final report to follow. - Clinical Findings Intake & Output: Intake & Output 02/03/18 02/03/18 02/04/18 15:59 23:59 07:59 Intake Total 744 / 744 350 / 350 Output Total 80 / 80 100 / 100 Balance 664 / 664 250 / 250 - Attending Attestation - Attending Attestation I saw and evaluated this patient and my medical decision-making was reviewed with the Resident Physician. I agree with the documented findings, disposition and treatment plan as described except to the extent set forth below. We independently had [id number] contact with the patient I spent 35 minutes of Critical Care time with this patient. It involved decision making of high complexity to assess, manipulate, and support vital organ system failure and/or to prevent further life threatening deterioration of the patient's condition. The time involved in the performance of separately reportable procedures was not counted toward critical care time. Patient seen and examined at bedside Labs, radiology, chart personally reviewed. Management was reviewed during multidisciplinary critical care rounds. MESSENGER FLOORPERSON: Patient is altered mental status most likely due to toxic and metabolic encephalopathy most likely secondary to sepsis . Pulm: Patient developed Acute on chronic hypoxic respiratory failure and also with Acute hypercarbia with left lung collapse due to mucus plugging Keep him NPO will do Bronchoscopy in the morning . To try aggressive bronchopulmonary toileting . Bilateral Lung consolidation with left lung collapse , 02/03 Patient had a bronchoscopy under minimal IV sedation has extensive bilateral mucus plugging patient has severe tracheobronchomalacia on bronchoscopy patient is more prone for pneumonia and recurrent lung collapse . Patient has long-term poor prognosis Cards: Patient is hemodynamically stable , patient is presenting with sepsis FEN-GI: NPO now on BIPAP Will need speech evaluation if patient is ready for eating . Renal: SCOT secondary to volume depletion Vs Sepsis Labs and output reviewed ID: Patient needs broad spectrum coverage for pneumonia all culture sent with BAL Heme/Onc: Labs reviewed no need of thromboprophylaxis because of INR being high Endo: Glucose Monitored Integ/MSK: Skin Care per routine ICU Nursing Protocol to prevent ulcers. Lines: All lines examined without evidence of infection : Dispo: Critically ill CODE:[id number] DNI
[2018-02-03] MEDS: Piperacillin/Tazobactam 3.375 GM in 0.9 % Sodium Chloride Mini Bag 100 ML IVPB SCH ×4 (07:47→23:43)
[2018-02-03] MEDS ORDERED: *HR* FentaNYL (PF) 100 MCG/2 ML VIAL ONE (07:54)
[2018-02-03] MEDS ORDERED: *HR* Midazolam HCl 2 MG/2 ML VIAL ONE (07:54)
[2018-02-03] MEDS ORDERED: *HR* Midazolam HCl 2 MG/2 ML VIAL IVP ONE (08:23)
[2018-02-03] MEDS ORDERED: *HR* FentaNYL (PF) 100 MCG/2 ML VIAL IVP ONE (08:23)
[2018-02-03] MEDS ORDERED: Tetracaine/Benzocaine/Butamben 200MG/SPRAY (100SPY/BOT) MM ONE (08:23)
[2018-02-03] MEDS ORDERED: Lidocaine Viscous Oral Soln 15 ML SOLUTION MM STA (08:23)
[2018-02-03] MEDS ORDERED: *HR* Metoprolol 5 MG/5 ML VIAL IVP ONE ×2 (08:40→08:49)
[2018-02-03] MEDS: *HR* Metoprolol 5 MG/5 ML VIAL IVP SCH (09:05)
[2018-02-03 09:57] LABS: Source of Body Fluid BAL LLL
[2018-02-03 11:07] LABS: Appearance of Body Fluid Cloudy (Clear); Volume of Body Fluid 17 mL
[2018-02-03] MEDS: *HR* OxyCODONE Immed Rel 5 MG TABLET PO PRN (12:10)
[2018-02-03] MEDS: Gabapentin 100 MG CAPSULE PO SCH ×3 (12:10→21:26)
[2018-02-03] MEDS: Ringers Solution, Lactated 1,000 ML IVC SCH (13:27)
[2018-02-04] MEDS: Ringers Solution, Lactated 1,000 ML IVC SCH (02:00)
[2018-02-04 03:39] LABS: Hematocrit 30.7 % (37.5-50.1); Hemoglobin 8.8 g/dL (12.9-16.9); Mean Corpuscular HGB Conc 28.7 g/dL (31.6-35.5); Mean Corpuscular Hemoglobin 28.3 pg (28.0-33.3); Mean Corpuscular Volume 98.7 fL (83.0-100.0); Mean Platelet Volume 12.2 fL (9.4-12.4); Nucleated Red Blood Cells 0.4 /100 WBC (0); Platelet Count 406 K/mcL (140-400); Red Blood Count 3.11 M/mcL (4.19-5.50); Red Cell Distribution Width 15.8 % (11.5-14.5)
[2018-02-04 03:52] LABS: INR 4.3; Prothrombin Time 48.2 Seconds (9.4-12.1)
[2018-02-04 03:59] LABS: Calcium 8.7 mg/dL (8.6-10.3); Potassium 4.7 mEq/L (3.5-5.1)
[2018-02-04 04:02] LABS: Large Platelets Present (Not Present); Lymphocytes # 5.6 K/mcL (0.6-4.6); Monocytes # 1.3 K/mcL (0.0-1.3); Neutrophils # 21.2 K/mcL (1.6-8.9); Platelet Estimate Increased (Normal); Toxic Granulation Present (Not Present)
[2018-02-04 05:56] LABS: ABG Base Excess 0 mEq/L (-2 to 3); ABG HCO3 28 mEq/L (21-27); ABG Oxygen Saturation 88 % (95-98); ABG PCO2 61 mmHg (35-45); ABG PH 7.27 pH Units (7.32-7.45); ABG PO2 63 mmHg (85-104); ABG TCO2 30 mEq/L (20-26)
[2018-02-04] MEDS: Famotidine 20 MG/2 ML VIAL IVP SCH (08:16)
[2018-02-04] MEDS: Gabapentin 100 MG CAPSULE PO SCH ×3 (08:16→20:32)
[2018-02-04] MEDS: Piperacillin/Tazobactam 3.375 GM in 0.9 % Sodium Chloride Mini Bag 100 ML IVPB SCH ×3 (08:16→23:34)
--- NOTE | 2018-02-04 10:06 | Pulmonology Progress Note ---
<Matteo Rodriguez - Last Filed: 02/04/18 11:29> Date of Encounter: 02/04/18 Time of Encounter: 10:06 Assessment and Plan (1) Sepsis due to pneumonia Current Visit: Yes Status: Acute Systems based plan as below. Final plan to be determined by attending physician , please see their attestation. - Patient seen and examined. - Labs, radiology, chart personally reviewed. 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 - Will continue to optimize contributing medical conditions. Pulmonary: - Significant V/Q mismatch due to large left-sided effusion and loculation. - Resp acidosis is not improving greatly but patient has not been using BiPAP so will place him on BiPAP now and BiPAP at night to see if this will help. - Resp Cultures growing Gram + Cocci. - Plan to get IR to drain loculated pleural effusion tomorrow morning Cardiovascular: - Monitor pressure closely. - Patient went into A-fib with RVR after bronch. Given Lopressor 5mg Q5min x2 and resolved. - Echo with EF 45-50% GI: - GI prophylaxis per routine, will try purred diet/applesauce to see if patient will tolerate. Should get formal swallow eval tomorrow. Heme: - EPCDs due to high INR. - INR finally coming down after Vit K and FFP but is still elevated. - HGB trending down slowly, no obvious active bleeding ID: - Significant leukocytosis that is finally starting to decrease. - Initial WBC count raised the question of new malignancy vs severe sepsis. - Uric acid was high, LDH normal, haptoglobin pending, inflammatory markers moderately elevated. - Peripheral smear also ordered. - Started on Vancomycin and Zosyn and plan to de-escalation. - Avoiding fluoroquinolones/azithro as the outpatient Levaquin Rx was likely the source of elevating his INR to begin with. - Bronchoscopy with thick secretions and BAL pending. Renal: - Has an SCOT that continues to worsen. - His non-gap metabolic acidosis has resolved after IVF. Stopping IVF now since we do want to avoid volume overload as he already has a significant pleural effusion and do not want to worsen his respiratory status since he is DNI. Endorcine: - Monitor blood glucose Lines: - All lines checked and no evidence of infections Skin: - Skin care to prevent pressure ulcers per nursing routine care Overall prognosis remains extremely poor (2) Acute kidney injury Current Visit: Yes Status: Acute 1. 2/2 sepsis, gradually worsening, continue to monitor and may just be lagging behind, will check in AM (3) Supratherapeutic INR Current Visit: Yes Status: Acute 1. Treated with total of 15mg of IV-VitK 2. On coumadin for A-fib and h/o DVT so full reversal is reasonable given his critical condition 3. Gave 4U FFP and is finally coming down today to 4. Patient should be between 2-3. 4. Resume coumadin once back in therapeutic range (4) Respiratory acidosis Current Visit: Yes Status: Acute 1. Multifactorial due to effusion and pulmonary edema. Patient had not been on BiPAP overnight and most of yesterday, so we will place him on BiPAP, now and recommend BiPAP at night. I suspect that this will improve his acidosis. We will trend ABGs (5) Metabolic acidosis Current Visit: Yes Status: Acute 1. non-AG metabolic acidosis resolved Subjective Principal diagnosis: sepsis from pneumonia Interval history: Patient did well overnight. Lab work is finally improving. However, has not been using BiPAP and acidosis is not improving as much as we would hope. Patient had some trouble swallowing thin liquids yesterday so we will try a slightly thicker diet such as applesauce to see if he can tolerate that. Overall, improving. Will also plan to get IR to drain loculated pleural effusion tomorrow. Objective PUL Vital signs: Last Vital Signs Temp 97.7 F 02/04/18 07:20 Pulse 60 02/04/18 09:00 Resp 16 02/04/18 09:00 BP 94/41 02/04/18 09:00 Pulse Ox 96 02/04/18 09:00 General appearance: no acute distress, alert (slightly confused) Eyes: nonicteric ENT: oropharynx moist Neck: supple Effort: normal Auscultation: bilateral: diminished breath sounds Cardiovascular: regular rate and rhythm Gastrointestinal: normoactive bowel sounds, non-distended Integumentary: normal Extremities: no cyanosis, other (R AKA) Musculoskeletal: other (R AKA) non-focal exam, pupils equal and round Results - Laboratory Findings CBC and BMP: 02/04/18 03:25 02/04/18 03:25 ABG ABG pH 7.27 pH Units (7.32-7.45) L 02/04/18 05:53 ABG pCO2 61 mmHg (35-45) H 02/04/18 05:53 ABG pO2 63 mmHg (85-104) L 02/04/18 05:53 ABG O2 Saturation 88 % (95-98) L 02/04/18 05:53 PT/INR, D-dimer PT 48.2 Seconds (9.4-12.1) H* D 02/04/18 03:25 Abnormal lab findings: Abnormal lab results WBC 31.2 K/mcL (4.3-11.1) H* D 02/04/18 03:25 RBC 3.11 M/mcL (4.19-5.50) L 02/04/18 03:25 Hgb 8.8 g/dL (12.9-16.9) L 02/04/18 03:25 Hct 30.7 % (37.5-50.1) L 02/04/18 03:25 MCHC 28.7 g/dL (31.6-35.5) L 02/04/18 03:25 RDW 15.8 % (11.5-14.5) H 02/04/18 03:25 Plt Count 406 K/mcL (140-400) H 02/04/18 03:25 Band Neutrophils % 20.0 % (0-4) H 02/04/18 03:25 Metamyelocytes % 8.0 % (0) H 02/04/18 03:25 Myelocytes % 2.0 % (0) H 02/04/18 03:25 Promyelocytes % 1.0 % (0) H 02/02/18 14:02 Neutrophils # 21.2 K/mcL (1.6-8.9) H 02/04/18 03:25 Lymphocytes # 5.6 K/mcL (0.6-4.6) H 02/04/18 03:25 Nucleated RBCs/100 WBC 0.4 /100 WBC (0) H 02/04/18 03:25 Toxic Granulation Present (Not Present) A 02/04/18 03:25 Platelet Estimate Increased (Normal) H 02/04/18 03:25 Large Platelets Present (Not Present) A 02/04/18 03:25 Immature Plt Fraction 14.5 % (1.1-6.1) H 02/03/18 03:06 Polychromasia 1+ (Not Present) A 02/02/18 14:02 Poikilocytosis 1+ (Not Present) A 02/02/18 14:02 Macrocytosis Present (Not Present) A 02/02/18 14:02 ESR 98 mm/hr (0-10) H 02/02/18 14:02 PT 48.2 Seconds (9.4-12.1) H* D 02/04/18 03:25 Fibrinogen 819 mg/dL (169-393) H* 02/02/18 19:44 ABG pH 7.27 pH Units (7.32-7.45) L 02/04/18 05:53 ABG pCO2 61 mmHg (35-45) H 02/04/18 05:53 ABG pO2 63 mmHg (85-104) L 02/04/18 05:53 ABG HCO3 28 mEq/L (21-27) H 02/04/18 05:53 ABG Total CO2 30 mEq/L (20-26) H 02/04/18 05:53 ABG O2 Saturation 88 % (95-98) L 02/04/18 05:53 Chloride 110 mEq/L (98-107) H 02/04/18 03:25 BUN 72 mg/dL (8-23) H 02/04/18 03:25 Creatinine 2.34 mg/dL (0.70-1.30) H 02/04/18 03:25 Est GFR ( Amer) 33 (> 60) L 02/04/18 03:25 Est GFR (Non-Af Amer) 27 (> 60) L 02/04/18 03:25 BUN/Creatinine Ratio 31 (6-26) H 02/04/18 03:25 Glucose 155 mg/dL (70-105) H 02/04/18 03:25 POC Glucose 138 mg/dL (70-99) H 02/03/18 23:53 Calculated Osmolality 320 (280-300) H 02/04/18 03:25 Uric Acid 11.6 mg/dL (2.3-7.6) H 02/02/18 14:02 Phosphorus 5.5 mg/dL (2.7-4.5) H 02/02/18 14:02 Magnesium 2.8 mg/dL (1.6-2.6) H 02/02/18 14:02 AST 12 Units/L (13-39) L 02/02/18 19:44 Troponin I 0.21 ng/mL (< 0.04) H* 02/03/18 03:06 C-Reactive Protein 224 mg/L (Less than 10) H 02/02/18 14:02 Albumin 3.2 g/dL (3.5-5.7) L 02/02/18 19:44 Globulin 3.6 g/dL (2.4-3.5) H 02/02/18 19:44 Albumin/Globulin Ratio 0.9 (1.1-2.2) L 02/02/18 19:44 Urine Color [place] (Yellow) A 02/02/18 13:42 Urine Clarity Turbid (Clear) A 02/02/18 13:42 Ur Specific [place] 1.027 (1.010-1.025) H 02/02/18 13:42 Urine Protein >=1000 mg/dL (Neg-Trace) H 02/02/18 13:42 Urine Glucose (UA) 100 mg/dL (Normal) H 02/02/18 13:42 Urine Ketones Trace mg/dL (Negative) H 02/02/18 13:42 Urine Bilirubin Moderate (Negative) H 02/02/18 13:42 Urine Urobilinogen 2.0 mg/dL (Normal) H 02/02/18 13:42 Ur Leukocyte Esterase Small (Negative) H 02/02/18 13:42 Urine Microscopic WBC 50-100 per hpf (0-3) H 02/02/18 13:42 Ur Squamous Epith Cells Many per lpf (None-Few) H 02/02/18 13:42 Fluid Appearance Cloudy (Clear) A 02/03/18 09:50 - Microbiology Findings Microbiology Findings: Microbiology, Last 48 Hours 02/03/18 09:50 Respiratory Culture - Preliminary Left Lower Lobe Lung Gram Positive Cocci 02/03/18 09:50 Respiratory Culture - Preliminary Other-Specify in Comments Gram Positive Cocci 02/03/18 09:50 Gram Stain - Final Lung - Right 02/03/18 07:35 Urine Culture - Preliminary Urine,[place] No growth. 02/03/18 09:50 Gram Stain - Final Left Lower Lobe Lung 02/02/18 15:53 Blood Culture - Preliminary Peripheral Venipuncture Culture is incubating and being continuously monitored for growth. Final report to follow. - Clinical Findings Intake & Output: Intake & Output 02/03/18 02/04/18 02/04/18 23:59 07:59 15:59 Intake Total 350 / 350 1100 / 1100 Output Total 100 / 100 110 / 110 Balance 250 / 250 990 / 990 - VTE Documentation of Mechanical Device: Intermittent pneumatic compression device Consult Discharge Plan - Plan Referrals: Jaleel Guevara MD [Primary Care Provider] - <Kenzie Sanchez - Last Filed: 02/04/18 22:30> Date of Encounter: 02/04/18 Objective PUL Vital signs: Last Vital Signs Temp 98 F 02/04/18 20:31 Pulse 60 02/04/18 22:00 Resp 17 02/04/18 22:00 BP 109/49 02/04/18 22:00 Pulse Ox 98 02/04/18 22:00 Results - Laboratory Findings CBC and BMP: 02/04/18 03:25 02/04/18 03:25 ABG ABG pH 7.27 pH Units (7.32-7.45) L 02/04/18 05:53 ABG pCO2 61 mmHg (35-45) H 02/04/18 05:53 ABG pO2 63 mmHg (85-104) L 02/04/18 05:53 ABG O2 Saturation 88 % (95-98) L 02/04/18 05:53 PT/INR, D-dimer PT 48.2 Seconds (9.4-12.1) H* D 02/04/18 03:25 Abnormal lab findings: Abnormal lab results WBC 31.2 K/mcL (4.3-11.1) H* D 02/04/18 03:25 RBC 3.11 M/mcL (4.19-5.50) L 02/04/18 03:25 Hgb 8.8 g/dL (12.9-16.9) L 02/04/18 03:25 Hct 30.7 % (37.5-50.1) L 02/04/18 03:25 MCHC 28.7 g/dL (31.6-35.5) L 02/04/18 03:25 RDW 15.8 % (11.5-14.5) H 02/04/18 03:25 Plt Count 406 K/mcL (140-400) H 02/04/18 03:25 Band Neutrophils % 20.0 % (0-4) H 02/04/18 03:25 Metamyelocytes % 8.0 % (0) H 02/04/18 03:25 Myelocytes % 2.0 % (0) H 02/04/18 03:25 Promyelocytes % 1.0 % (0) H 02/02/18 14:02 Neutrophils # 21.2 K/mcL (1.6-8.9) H 02/04/18 03:25 Lymphocytes # 5.6 K/mcL (0.6-4.6) H 02/04/18 03:25 Nucleated RBCs/100 WBC 0.4 /100 WBC (0) H 02/04/18 03:25 Toxic Granulation Present (Not Present) A 02/04/18 03:25 Platelet Estimate Increased (Normal) H 02/04/18 03:25 Large Platelets Present (Not Present) A 02/04/18 03:25 Immature Plt Fraction 14.5 % (1.1-6.1) H 02/03/18 03:06 Polychromasia 1+ (Not Present) A 02/02/18 14:02 Poikilocytosis 1+ (Not Present) A 02/02/18 14:02 Macrocytosis Present (Not Present) A 02/02/18 14:02 ESR 98 mm/hr (0-10) H 02/02/18 14:02 PT 48.2 Seconds (9.4-12.1) H* D 02/04/18 03:25 Fibrinogen 819 mg/dL (169-393) H* 02/02/18 19:44 ABG pH 7.27 pH Units (7.32-7.45) L 02/04/18 05:53 ABG pCO2 61 mmHg (35-45) H 02/04/18 05:53 ABG pO2 63 mmHg (85-104) L 02/04/18 05:53 ABG HCO3 28 mEq/L (21-27) H 02/04/18 05:53 ABG Total CO2 30 mEq/L (20-26) H 02/04/18 05:53 ABG O2 Saturation 88 % (95-98) L 02/04/18 05:53 Chloride 110 mEq/L (98-107) H 02/04/18 03:25 BUN 72 mg/dL (8-23) H 02/04/18 03:25 Creatinine 2.34 mg/dL (0.70-1.30) H 02/04/18 03:25 Est GFR ( Amer) 33 (> 60) L 02/04/18 03:25 Est GFR (Non-Af Amer) 27 (> 60) L 02/04/18 03:25 BUN/Creatinine Ratio 31 (6-26) H 02/04/18 03:25 Glucose 155 mg/dL (70-105) H 02/04/18 03:25 POC Glucose 138 mg/dL (70-99) H 02/03/18 23:53 Calculated Osmolality 320 (280-300) H 02/04/18 03:25 Uric Acid 11.6 mg/dL (2.3-7.6) H 02/02/18 14:02 Phosphorus 5.5 mg/dL (2.7-4.5) H 02/02/18 14:02 Magnesium 2.8 mg/dL (1.6-2.6) H 02/02/18 14:02 AST 12 Units/L (13-39) L 02/02/18 19:44 Troponin I 0.21 ng/mL (< 0.04) H* 02/03/18 03:06 C-Reactive Protein 224 mg/L (Less than 10) H 02/02/18 14:02 Albumin 3.2 g/dL (3.5-5.7) L 02/02/18 19:44 Globulin 3.6 g/dL (2.4-3.5) H 02/02/18 19:44 Albumin/Globulin Ratio 0.9 (1.1-2.2) L 02/02/18 19:44 Urine Color [place] (Yellow) A 02/02/18 13:42 Urine Clarity Turbid (Clear) A 02/02/18 13:42 Ur Specific [place] 1.027 (1.010-1.025) H 02/02/18 13:42 Urine Protein >=1000 mg/dL (Neg-Trace) H 02/02/18 13:42 Urine Glucose (UA) 100 mg/dL (Normal) H 02/02/18 13:42 Urine Ketones Trace mg/dL (Negative) H 02/02/18 13:42 Urine Bilirubin Moderate (Negative) H 02/02/18 13:42 Urine Urobilinogen 2.0 mg/dL (Normal) H 02/02/18 13:42 Ur Leukocyte Esterase Small (Negative) H 02/02/18 13:42 Urine Microscopic WBC 50-100 per hpf (0-3) H 02/02/18 13:42 Ur Squamous Epith Cells Many per lpf (None-Few) H 02/02/18 13:42 Fluid Appearance Cloudy (Clear) A 02/03/18 09:50 - Microbiology Findings Microbiology Findings: Microbiology, Last 48 Hours 02/03/18 09:50 Acid Fast Stain - Final Other-Specify in Comments 02/03/18 09:50 Acid Fast Stain - Final Left Lower Lobe Lung 02/03/18 09:50 Respiratory Culture - Preliminary Left Lower Lobe Lung Gram Positive Cocci 02/03/18 09:50 Respiratory Culture - Preliminary Other-Specify in Comments Gram Positive Cocci 02/03/18 09:50 Gram Stain - Final Lung - Right 02/03/18 07:35 Urine Culture - Preliminary Urine,[place] No growth. 02/03/18 09:50 Gram Stain - Final Left Lower Lobe Lung - Clinical Findings Intake & Output: Intake & Output 02/04/18 02/04/18 02/04/18 07:59 15:59 23:59 Intake Total 1100 / 1100 200 / 200 100 / 100 Output Total 110 / 110 100 / 100 225 / 225 Balance 990 / 990 100 / 100 -125 / -125 - Attending Attestation - Attending Attestation I saw and evaluated this patient and my medical decision-making was reviewed with the Resident Physician. I agree with the documented findings, disposition and treatment plan as described except to the extent set forth below. We independently had [id number] contact with the patient Patient seen and examined at bedside Labs, radiology, chart personally reviewed. Management was reviewed during multidisciplinary critical care rounds. 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 Patient is more alert today Pulm: Patient developed Acute on chronic hypoxic respiratory failure and also with Acute hypercarbia with left lung collapse due to mucus plugging Keep him NPO will do Bronchoscopy in the morning . To try aggressive bronchopulmonary toileting . Bilateral Lung consolidation with left lung collapse , 02/03 Patient had a bronchoscopy under minimal IV sedation has extensive bilateral mucus plugging patient has severe tracheobronchomalacia on bronchoscopy patient is more prone for pneumonia and recurrent lung collapse . Patient has [facility] poor prognosis 02/04 BAL is growing Gram positive cocci . .Patient has moderate loculated pleural effusion will need IR guided thoracentesis will correct INR before procedure . Cards: Patient is hemodynamically stable , patient is presented with sepsis FEN-GI: NPO now on BIPAP Will need speech evaluation advance diet as tolerated Renal: Labs and output reviewed ID: BAL growing Gram positive cocci to continue broad spectrum antibiotics Heme/Onc: Labs reviewed no need of thromboprophylaxis because of INR being high Endo: Glucose Monitored Integ/MSK: Skin Care per routine ICU Nursing Protocol to prevent ulcers. Lines: All lines examined without evidence of infection : Dispo: Critically ill high chance of clinical decline CODE:[id number] DNI
[2018-02-04] MEDS: *HR* Metoprolol 5 MG/5 ML VIAL IVP SCH (10:33)
[2018-02-04] MEDS: *HR* OxyCODONE Immed Rel 5 MG TABLET PO PRN (14:50)
[2018-02-05 04:09] LABS: Lymphocytes % 3.1 %; Mean Platelet Volume 11.9 fL (9.4-12.4); Red Cell Distribution Width 15.6 % (11.5-14.5)
[2018-02-05 04:10] LABS: Basophils % 0.2 %; Hematocrit 33.3 % (37.5-50.1); Hemoglobin 9.5 g/dL (12.9-16.9); Immature Granulocytes % 9.7 % (0-4); Lymphocytes # 0.8 K/mcL (0.6-4.6); Mean Corpuscular HGB Conc 28.5 g/dL (31.6-35.5); Mean Corpuscular Volume 98.2 fL (83.0-100.0); Monocytes # 0.4 K/mcL (0.0-1.3); Monocytes % 1.6 %; Nucleated Red Blood Cells 0.2 /100 WBC (0); Platelet Count 423 K/mcL (140-400); Red Blood Count 3.39 M/mcL (4.19-5.50); Segmented Neutrophils % 85.4 %
[2018-02-05 04:11] LABS: Basophils # 0.1 K/mcL (0.0-0.2); Neutrophils # 20.9 K/mcL (1.6-8.9)
[2018-02-05 04:18] LABS: Calcium 8.5 mg/dL (8.6-10.3); Potassium 4.4 mEq/L (3.5-5.1)
[2018-02-05 04:30] LABS: INR 5.8
[2018-02-05 04:48] LABS: Platelet Estimate Increased (Normal)
[2018-02-05 04:49] LABS: Toxic Granulation Present (Not Present)
--- NOTE | 2018-02-05 06:55 | Electrocardiograph Report ---
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
[2018-02-05] MEDS: Gabapentin 100 MG CAPSULE PO SCH (07:27)
[2018-02-05] MEDS: Famotidine 20 MG/2 ML VIAL IVP SCH (07:27)
[2018-02-05] MEDS: Piperacillin/Tazobactam 3.375 GM in 0.9 % Sodium Chloride Mini Bag 100 ML IVPB SCH ×2 (07:27→17:26)
[2018-02-05] MEDS: *HR* Metoprolol 5 MG/5 ML VIAL IVP SCH (07:27)
--- NOTE | 2018-02-05 07:34 | Pulmonology Progress Note ---
<Alexx Gerard - Last Filed: 02/05/18 10:47> Date of Encounter: 02/05/18 Time of Encounter: 07:34 Assessment and Plan (1) Sepsis due to pneumonia Current Visit: Yes Status: Acute Patient seen and examined. Labs, radiology, chart personally reviewed by myself. Patient had significant V/Q mismatch due to large left-sided effusion and loculation. Respiratory cultures are growing gram-positive cocci. Patient did have significant leukocytosis is beginning to decrease at this time. Initial white blood cell count raised the question of new malignancy versus severe sepsis. Patient had elevated uric acid, LDH normal, haptoglobin still pending inflammatory markers were moderately elevated. Patient on vancomycin day 3, Zosyn day 3 and plan to de-escalate as culture sensitivities returned. Avoiding fluoroquinolones/azithromycin as the outpatient Levaquin was likely the source of the patient's elevation in his INR to begin with. Cultures of come back MRSA positive so we will change vancomycin to linezolid starting this afternoon. We will also give patient last dose of Zosyn today then discontinue it. Plan for interventional radiology to drain pleural effusion, empyema that is loculated. Patient did have an elevated INR today of 5 so we will give 2 units FFP and recheck once below to we will plan for IR to do the procedure. If able to drain at all they will remove the catheter. If not they will leave the catheter in as a PICC tells me continue draining Patient is doing better today is no longer on any pressors at this time due to not needing any pressors patient most likely can be transferred out of the ICU onto the medical floor. We will give bronchodilators every 6 hours. We will restart glaucoma eye medications once on floor. We will change from famotidine to Protonix. We will also plan on holding gabapentin. (2) Leukocytosis Current Visit: Yes Status: Acute Presented on 629 with a white blood cell count of 63.3-> 75-> 31.2-> 24.5 White blood cell drink continues to decrease today. This most likely secondary to his sepsis secondary to the pneumonia. This is resolving with antibiotics. We will continue to monitor with daily CBCs Qualifiers: Leukocytosis type: unspecified Qualified Code(s): D72.829 - Elevated white blood cell count, unspecified (3) Acute kidney injury Current Visit: Yes Status: Acute Secondary to sepsis, gradually worsening upon initial visit but today when down with a creatinine yesterday of 2.34 and today of 2.14. We will continue to monitor daily (4) Supratherapeutic INR Current Visit: Yes Status: Acute Treated initially with a total of 15 mg of IV vitamin K. On Coumadin for atrial fibrillation and history of DVT so full reversal is reasonable given his critical condition. Initially gave 4 units FFP and is finally coming down but today increased to 5 were yesterday was 4. Due to patient having procedure done through interventional radiology goal INR is 2 so we will give 2 more units of FFP and have 2 more ready in case patient does not reach the threshold. Resume Coumadin once back in therapeutic range (5) Respiratory acidosis Current Visit: Yes Status: Acute Multifactorial due to effusion and pulmonary edema. Patient had not been on BiPAP prior to last night. Last night he did well on BiPAP and his mental status is improving as well as improving his acidosis. We will continue to trend ABGs. (6) Metabolic acidosis Current Visit: Yes Status: Acute Not in Metabolic acidosis resolves (7) A-fib Current Visit: Yes Status: Resolved Patient does have history of atrial fibrillation. He is on Coumadin for anticoagulation. This is since been stopped due to his elevated INR. After patient had bronchoscopy a few days ago he did go in A. fib with RVR. He was given Lopressor 5 mg every 52 and a completely resolved. Patient's blood pressure has been stable. Not needing any pressors. Echo with EF 45-50% Resolved but we will continue to monitor Qualifiers: Atrial fibrillation type: chronic Qualified Code(s): I48.2 - Chronic atrial fibrillation Subjective Principal diagnosis: sepsis from pneumonia Interval history: Patient did well overnight. He was on BiPAP all night acidosis seems to be improving. Patient still is slightly confused which according to family he is now near his baseline. Plan is for IR to drain loculated pleural effusion today. Patient did have elevated INR so we will give FFP to get below 2. Patient overall doing well. Objective PUL Vital signs: Last Vital Signs Temp 97.7 F 02/05/18 04:00 Pulse 61 02/05/18 06:00 Resp 17 02/05/18 06:00 BP 94/77 02/05/18 06:00 Pulse Ox 98 02/05/18 06:00 General appearance: no acute distress Eyes: nonicteric ENT: oropharynx moist Neck: supple Effort: normal Auscultation: left: diminished breath sounds, rhonchi Cardiovascular: regular rate and rhythm Gastrointestinal: normoactive bowel sounds, non-distended Integumentary: normal Extremities: no cyanosis, no edema, no clubbing, other (Right [id number] amputee.) Musculoskeletal: no deformities, ROM normal normal mental status, non-focal exam, pupils equal and round, motor strength normal and symmetric Results - Laboratory Findings CBC and BMP: 02/05/18 03:52 02/05/18 03:52 ABG ABG pH 7.27 pH Units (7.32-7.45) L 02/04/18 05:53 ABG pCO2 61 mmHg (35-45) H 02/04/18 05:53 ABG pO2 63 mmHg (85-104) L 02/04/18 05:53 ABG O2 Saturation 88 % (95-98) L 02/04/18 05:53 PT/INR, D-dimer PT 65.0 Seconds (9.4-12.1) H* 02/05/18 03:52 Abnormal lab findings: Abnormal lab results WBC 24.5 K/mcL (4.3-11.1) H 02/05/18 03:52 RBC 3.39 M/mcL (4.19-5.50) L 02/05/18 03:52 Hgb 9.5 g/dL (12.9-16.9) L 02/05/18 03:52 Hct 33.3 % (37.5-50.1) L 02/05/18 03:52 MCHC 28.5 g/dL (31.6-35.5) L 02/05/18 03:52 RDW 15.6 % (11.5-14.5) H 02/05/18 03:52 Plt Count 423 K/mcL (140-400) H 02/05/18 03:52 Immature Gran % 9.7 % (0-4) H 02/05/18 03:52 Band Neutrophils % 20.0 % (0-4) H 02/04/18 03:25 Metamyelocytes % 8.0 % (0) H 02/04/18 03:25 Myelocytes % 2.0 % (0) H 02/04/18 03:25 Promyelocytes % 1.0 % (0) H 02/02/18 14:02 Neutrophils # 20.9 K/mcL (1.6-8.9) H 02/05/18 03:52 Nucleated RBCs/100 WBC 0.2 /100 WBC (0) H 02/05/18 03:52 Toxic Granulation Present (Not Present) A 02/05/18 03:52 Platelet Estimate Increased (Normal) H 02/05/18 03:52 Large Platelets Present (Not Present) A 02/04/18 03:25 Immature Plt Fraction 14.5 % (1.1-6.1) H 02/03/18 03:06 Polychromasia 1+ (Not Present) A 02/02/18 14:02 Poikilocytosis 1+ (Not Present) A 02/02/18 14:02 Macrocytosis Present (Not Present) A 02/02/18 14:02 ESR 98 mm/hr (0-10) H 02/02/18 14:02 PT 65.0 Seconds (9.4-12.1) H* 02/05/18 03:52 INR 5.8 H* 02/05/18 03:52 Fibrinogen 819 mg/dL (169-393) H* 02/02/18 19:44 ABG pH 7.27 pH Units (7.32-7.45) L 02/04/18 05:53 ABG pCO2 61 mmHg (35-45) H 02/04/18 05:53 ABG pO2 63 mmHg (85-104) L 02/04/18 05:53 ABG HCO3 28 mEq/L (21-27) H 02/04/18 05:53 ABG Total CO2 30 mEq/L (20-26) H 02/04/18 05:53 ABG O2 Saturation 88 % (95-98) L 02/04/18 05:53 Sodium 148 mEq/L (136-145) H 02/05/18 03:52 Chloride 114 mEq/L (98-107) H 02/05/18 03:52 BUN 68 mg/dL (8-23) H 02/05/18 03:52 Creatinine 2.14 mg/dL (0.70-1.30) H 02/05/18 03:52 Est GFR ( Amer) 36 (> 60) L 02/05/18 03:52 Est GFR (Non-Af Amer) 30 (> 60) L 02/05/18 03:52 BUN/Creatinine Ratio 32 (6-26) H 02/05/18 03:52 Calculated Osmolality 325 (280-300) H 02/05/18 03:52 Uric Acid 11.6 mg/dL (2.3-7.6) H 02/02/18 14:02 Calcium 8.5 mg/dL (8.6-10.3) L 02/05/18 03:52 Phosphorus 5.5 mg/dL (2.7-4.5) H 02/02/18 14:02 Magnesium 2.8 mg/dL (1.6-2.6) H 02/02/18 14:02 AST 12 Units/L (13-39) L 02/02/18 19:44 Troponin I 0.21 ng/mL (< 0.04) H* 02/03/18 03:06 C-Reactive Protein 224 mg/L (Less than 10) H 02/02/18 14:02 Albumin 3.2 g/dL (3.5-5.7) L 02/02/18 19:44 Globulin 3.6 g/dL (2.4-3.5) H 02/02/18 19:44 Albumin/Globulin Ratio 0.9 (1.1-2.2) L 02/02/18 19:44 Urine Color Elk (Yellow) A 02/02/18 13:42 Urine Clarity Turbid (Clear) A 02/02/18 13:42 Ur Specific Mobile 1.027 (1.010-1.025) H 02/02/18 13:42 Urine Protein >=1000 mg/dL (Neg-Trace) H 02/02/18 13:42 Urine Glucose (UA) 100 mg/dL (Normal) H 02/02/18 13:42 Urine Ketones Trace mg/dL (Negative) H 02/02/18 13:42 Urine Bilirubin Moderate (Negative) H 02/02/18 13:42 Urine Urobilinogen 2.0 mg/dL (Normal) H 02/02/18 13:42 Ur Leukocyte Esterase Small (Negative) H 02/02/18 13:42 Urine Microscopic WBC 50-100 per hpf (0-3) H 02/02/18 13:42 Ur Squamous Epith Cells Many per lpf (None-Few) H 02/02/18 13:42 Fluid Appearance Cloudy (Clear) A 02/03/18 09:50 - Microbiology Findings Microbiology Findings: Microbiology, Last 48 Hours 02/03/18 07:35 Urine Culture - Final Urine,[place] No growth. 02/03/18 09:50 Acid Fast Stain - Final Other-Specify in Comments 02/03/18 09:50 Acid Fast Stain - Final Left Lower Lobe Lung 02/03/18 09:50 Respiratory Culture - Preliminary Left Lower Lobe Lung Gram Positive Cocci 02/03/18 09:50 Respiratory Culture - Preliminary Other-Specify in Comments Gram Positive Cocci 02/03/18 09:50 Gram Stain - Final Lung - Right 02/03/18 09:50 Gram Stain - Final Left Lower Lobe Lung - Clinical Findings Intake & Output: Intake & Output 02/04/18 02/04/18 02/05/18 15:59 23:59 07:59 Intake Total 200 / 200 100 / 100 350 / 350 Output Total 100 / 100 225 / 225 200 / 200 Balance 100 / 100 -125 / -125 150 / 150 Weight 91.6 kg - VTE Documentation of Mechanical Device: Intermittent pneumatic compression device Consult Discharge Plan - Plan Referrals: Jaleel Guevara MD [Primary Care Provider] - <Alan Fontenot W - Last Filed: 02/05/18 11:42> Date of Encounter: 02/05/18 Objective PUL Vital signs: Last Vital Signs Temp 97.7 F 02/05/18 07:37 Pulse 65 02/05/18 08:00 Resp 17 02/05/18 08:00 BP 142/68 02/05/18 08:00 Pulse Ox 96 02/05/18 07:00 Results - Laboratory Findings CBC and BMP: 02/05/18 03:52 02/05/18 03:52 ABG ABG pH 7.27 pH Units (7.32-7.45) L 02/04/18 05:53 ABG pCO2 61 mmHg (35-45) H 02/04/18 05:53 ABG pO2 63 mmHg (85-104) L 02/04/18 05:53 ABG O2 Saturation 88 % (95-98) L 02/04/18 05:53 PT/INR, D-dimer PT 65.0 Seconds (9.4-12.1) H* 02/05/18 03:52 Abnormal lab findings: Abnormal lab results WBC 24.5 K/mcL (4.3-11.1) H 02/05/18 03:52 RBC 3.39 M/mcL (4.19-5.50) L 02/05/18 03:52 Hgb 9.5 g/dL (12.9-16.9) L 02/05/18 03:52 Hct 33.3 % (37.5-50.1) L 02/05/18 03:52 MCHC 28.5 g/dL (31.6-35.5) L 02/05/18 03:52 RDW 15.6 % (11.5-14.5) H 02/05/18 03:52 Plt Count 423 K/mcL (140-400) H 02/05/18 03:52 Immature Gran % 9.7 % (0-4) H 02/05/18 03:52 Band Neutrophils % 20.0 % (0-4) H 02/04/18 03:25 Metamyelocytes % 8.0 % (0) H 02/04/18 03:25 Myelocytes % 2.0 % (0) H 02/04/18 03:25 Promyelocytes % 1.0 % (0) H 02/02/18 14:02 Neutrophils # 20.9 K/mcL (1.6-8.9) H 02/05/18 03:52 Nucleated RBCs/100 WBC 0.2 /100 WBC (0) H 02/05/18 03:52 Toxic Granulation Present (Not Present) A 02/05/18 03:52 Platelet Estimate Increased (Normal) H 02/05/18 03:52 Large Platelets Present (Not Present) A 02/04/18 03:25 Immature Plt Fraction 14.5 % (1.1-6.1) H 02/03/18 03:06 Polychromasia 1+ (Not Present) A 02/02/18 14:02 Poikilocytosis 1+ (Not Present) A 02/02/18 14:02 Macrocytosis Present (Not Present) A 02/02/18 14:02 ESR 98 mm/hr (0-10) H 02/02/18 14:02 Haptoglobin 225 mg/dL (30-200) H 02/02/18 14:02 PT 65.0 Seconds (9.4-12.1) H* 02/05/18 03:52 INR 5.8 H* 02/05/18 03:52 Fibrinogen 819 mg/dL (169-393) H* 02/02/18 19:44 ABG pH 7.27 pH Units (7.32-7.45) L 02/04/18 05:53 ABG pCO2 61 mmHg (35-45) H 02/04/18 05:53 ABG pO2 63 mmHg (85-104) L 02/04/18 05:53 ABG HCO3 28 mEq/L (21-27) H 02/04/18 05:53 ABG Total CO2 30 mEq/L (20-26) H 02/04/18 05:53 ABG O2 Saturation 88 % (95-98) L 02/04/18 05:53 Sodium 148 mEq/L (136-145) H 02/05/18 03:52 Chloride 114 mEq/L (98-107) H 02/05/18 03:52 BUN 68 mg/dL (8-23) H 02/05/18 03:52 Creatinine 2.14 mg/dL (0.70-1.30) H 02/05/18 03:52 Est GFR ( Amer) 36 (> 60) L 02/05/18 03:52 Est GFR (Non-Af Amer) 30 (> 60) L 02/05/18 03:52 BUN/Creatinine Ratio 32 (6-26) H 02/05/18 03:52 Calculated Osmolality 325 (280-300) H 02/05/18 03:52 Uric Acid 11.6 mg/dL (2.3-7.6) H 02/02/18 14:02 Calcium 8.5 mg/dL (8.6-10.3) L 02/05/18 03:52 Phosphorus 5.5 mg/dL (2.7-4.5) H 02/02/18 14:02 Magnesium 2.8 mg/dL (1.6-2.6) H 02/02/18 14:02 AST 12 Units/L (13-39) L 02/02/18 19:44 Troponin I 0.21 ng/mL (< 0.04) H* 02/03/18 03:06 C-Reactive Protein 224 mg/L (Less than 10) H 02/02/18 14:02 Albumin 3.2 g/dL (3.5-5.7) L 02/02/18 19:44 Globulin 3.6 g/dL (2.4-3.5) H 02/02/18 19:44 Albumin/Globulin Ratio 0.9 (1.1-2.2) L 02/02/18 19:44 Urine Color Elk (Yellow) A 02/02/18 13:42 Urine Clarity Turbid (Clear) A 02/02/18 13:42 Ur Specific Mobile 1.027 (1.010-1.025) H 02/02/18 13:42 Urine Protein >=1000 mg/dL (Neg-Trace) H 02/02/18 13:42 Urine Glucose (UA) 100 mg/dL (Normal) H 02/02/18 13:42 Urine Ketones Trace mg/dL (Negative) H 02/02/18 13:42 Urine Bilirubin Moderate (Negative) H 02/02/18 13:42 Urine Urobilinogen 2.0 mg/dL (Normal) H 02/02/18 13:42 Ur Leukocyte Esterase Small (Negative) H 02/02/18 13:42 Urine Microscopic WBC 50-100 per hpf (0-3) H 02/02/18 13:42 Ur Squamous Epith Cells Many per lpf (None-Few) H 02/02/18 13:42 Fluid Appearance Cloudy (Clear) A 02/03/18 09:50 - Microbiology Findings Microbiology Findings: Microbiology, Last 48 Hours 02/03/18 07:35 Urine Culture - Final Urine,[place] No growth. 02/03/18 09:50 Acid Fast Stain - Final Other-Specify in Comments 02/03/18 09:50 Acid Fast Stain - Final Left Lower Lobe Lung 02/03/18 09:50 Respiratory Culture - Preliminary Left Lower Lobe Lung Gram Positive Cocci 02/03/18 09:50 Respiratory Culture - Preliminary Other-Specify in Comments Gram Positive Cocci 02/03/18 09:50 Gram Stain - Final Lung - Right 02/03/18 09:50 Gram Stain - Final Left Lower Lobe Lung - Clinical Findings Intake & Output: Intake & Output 02/04/18 02/05/18 02/05/18 23:59 07:59 15:59 Intake Total 100 / 100 350 / 350 Output Total 225 / 225 200 / 200 Balance -125 / -125 150 / 150 Weight 91.6 kg - Attending Attestation I examined this patient and my medical decision-making was reviewed with the Resident Physician. I agree with the documented findings, disposition and treatment plan as described except to the extent set forth below. We independently had [id number] contact with the patient Patient seen and examined at bedside Labs, radiology, chart personally reviewed. Management was reviewed during multidisciplinary critical care rounds. 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 He is somewhat disoriented and this is likely a manifestation of underlying delirium complicated by sensory deprivation as the patient is both hearing-impaired and visually impaired. Does not appear to be have a focal neurological deficit Pulm: Hypoxic hypercapnic respiratory failure tolerated to noninvasive ventilation overnight and now with acceptable oxygenation on nasal cannula. Would likely continue to support patient with noninvasive ventilation at night through BiPAP as tolerated. 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 He also has a large loculated empyema with plan for drainage by interventional radiology today once the INR is corrected Cards: Blood pressure stable continue to monitor on telemetry. His history of heart failure with reduced ejection fraction volume status closely. GI: Plan for his formal secretions swallow eval the day and diet will be placed based upon recommendations Renal: UOP Monitored, Cont to Trend sCr and Electrolytes. ID: Continue antibiotics for staph pneumonia/empyema planned to de-escalate based upon speciation/sensitivity Heme/Onc: Patient has coagulopathy secondary to long-term anticoagulation for DVT INR remains greater than 5 today we will give FFP prior to planned procedure Endo: Glucose Monitored Integ/MSK: Skin Care per routine ICU Nursing Protocol to prevent ulcers. Lines: All lines examined without evidence of infection : Dispo: Stable for transfer to stepdown unit for ongoing care CODE: DNAR/DNI. Overall prognosis poor. I spoke with the patient's daughter who is also his medical decision-maker and she informed me that the patient had spoken to her on several occasions that he felt tired and did not want to go on with aggressive healthcare. I am going to consult palliative care to join our conversation for goals of care discussion. Plan as outlined above is tailored towards more aggressive care and that may change based upon outcome of this conversation vis-a-vis chest tube placement
[2018-02-05] MEDS ORDERED: 0.9 % Sodium Chloride 250 ML ONE (09:24)
[2018-02-05] MEDS ORDERED: *HR* Dextrose 50 % in Water (Syg) 50 ML SYRINGE IVP PRN (10:39)
[2018-02-05] MEDS ORDERED: Dextrose Gel 15 GM/37.5 ML TUBE PO PRN ×2 (10:39)
[2018-02-05] MEDS ORDERED: D5% in Water 1,000 ML IVC PRN (10:39)
[2018-02-05] MEDS: Ipratropium/Albuterol Neb 3 ML AER SCH ×4 (14:06→23:49)
--- NOTE | 2018-02-05 14:08 | Palliative - Consult Note ---
Date of Encounter: 02/05/18 Time of Encounter: 14:00 - Assessment and Plan (1) Generalized pain Current Visit: Yes Status: Acute Assessment and plan: Will increase Oxycodone to every 3 hours PRN and monitor (2) Advance care planning Current Visit: Yes Status: Acute Assessment and plan: Long discussion with pt daughter, Destini (EMILY) and son Dominic and his . Discussed current clinical status and goals of care. Patient's daughter discussed her father's poor quality of life the last 5 years, and the fact he cannot be independent and do things that he enjoyed. He is now primarily bedbound and unable to feed/dress/bathe himself. He has been stated to her that he was "tired", and ready to "move on to be with this ", that is . She states he is at peace with God, and has no spiritual issues or concerns. Son Dominic also agrees that if his father could make his own decisions at this time, he would want current care stopped and pass away naturally. All family in agreement they do not want to proceed with chest tube placement, and desire to transition to comfort care. They would like IV antibiotics to continue until discharge, and are trying to get a grandson here from [place] of state. Plan to possible discharge back to [facility] tomorrow with [facility] care. Will f/u in am - referral has been called to [facility], and daughter will be here around 12 tomorrow. (3) Acute kidney injury Current Visit: Yes Status: Acute (4) Leukocytosis Current Visit: Yes Status: Acute Assessment and plan: Has improved with current treatment. Family decided against chest tube for likely empyema. Qualifiers: Leukocytosis type: unspecified Qualified Code(s): D72.829 - Elevated white blood cell count, unspecified (5) Sepsis due to pneumonia Current Visit: Yes Status: Acute Assessment and plan: Will continue IV antibiotics overnight, and discontinue upon transfer to [facility] tomorrow. Palliative-CN HPI - Data of Consult Requesting Physician: Kenzie Sanchez MD Primary Care Provider: Jaleel Guevara MD - Consult Narrative History of present illness: Mr. Hirsch is a 82 year old male that is a longterm resident of [facility], who was admitted with altered mental status and a suspected left lung pneumonia. He also had supertherapeutic INR greater than 10. WBC peaked at 75, 000. He was admitted and began on IV antibiotics. Bronchoscopy was performed 02/02. CXR yesterday still demonstrated loculated left pleural effusion, and chest tube drainage was planned for today. However, daughter asked that this be held until family meeting could take place. Palliative care was consulted to assist with goals of care discussion. CC: Kenzie Sanchez MD Past Med Surg Social Fam HX - Past Medical History Medical history: atrial fibrillation, cancer, DVT, diabetes, GERD, hyperlipidemia, hypertension, myocardial infarction, pulmonary embolus Additional medical history: tremors, mrsa, pvd, cataracts, bcc, Psychiatric history: no psych history - Past Surgical History Surgical History: angioplasty/stent, IVC Filter, knee replacement, pacemaker/ AICD Additional surgical history: hernia repair, left eye surgery, femoral artery atherectomy, right AKA - Social History Smoking Status: Former smoker Smokeless Tobacco Status: No Alcohol use: none Drug use: none - Family History Mother Living Status: Hx Family Cardiac Disorders: Yes ([place]) Hx Family Respiratory Disorders: No Hx Family Cancer: No Hx Family GI Disorders: No Hx Family Genitourinary Disorders: No Hx Family Endocrine Disorder: No Hx Family Musculoskeletal Disorders: No Hx Family Neuromuscular Disorders: No Hx Family Neurologic Disorders: No Hx Family HEENT Disorders: No Hx Family Autoimmune Disorders: No Hx Family Reproductive Disorders: No Hx Family Psychosocial Disorders: No Hx Family Medical Disorders: No Medications and Allergies Glimepiride [Amaryl] 2 mg PO 0800 01/21/16 [History] Acetaminophen [Non-Aspirin] 325 mg PO Q6H PRN 02/02/18 [History] Aspirin [Lo-Dose Aspirin EC] 81 mg PO DAILY 02/02/18 [History] Bimatoprost [Lumigan] 1 drop OP HS 02/02/18 [History] Brinzolamide/Brimonidine Tart [Simbrinza 1%-0.2% Eye Drops] 1 drop OP DAILY [History] Cyanocobalamin (B-12) [Vitamin B12] 2,000 mcg PO QAM 02/02/18 [History] Furosemide [Lasix] 40 mg PO DAILY 02/02/18 [History] Gabapentin [Neurontin] 300 mg PO 0800,1300 02/02/18 [History] Gabapentin [Neurontin] 600 mg PO HS 02/02/18 [History] HYDROcodone/Acet 7.5/325 mg [[place] 7.5-325 mg] 1 tab PO Q8H PRN 02/02/18 [ History] Insulin ASPART [Novolog Flexpen] 0 unit SQ TID PRN 02/02/18 [History] Ipratropium/Albuterol Neb [Duoneb] 3 ml IH Q4HR 02/02/18 [History] Polyethylene Glycol 3350 [MiraLAX Powder Bulk 17.9 Oz] 1 scoop PO DAILY [History] Sennosides/Docusate Sodium [Senna Plus] 1 each PO DAILY 02/02/18 [History] Simvastatin [Zocor] 5 mg PO HS 02/02/18 [History] Timolol [Betimol] 1 drop OP BID 02/02/18 [History] cefTRIAXone [Rocephin] 1,000 mg IVPB DAILY 02/02/18 [History] levoFLOXacin [Levaquin] 500 mg PO DAILY 02/02/18 [History] 3 Allergy/AdvReac Type Severity Reaction Status Date / Time No Known Allergies Allergy Verified 01/21/16 09:12 ROS unobtainable: due to mental status Palliative Care-Exam - Constitutional Vitals: Temp Pulse Resp BP Pulse Ox 97.0 F L 64 15 144/68 97 02/05/18 12:00 02/05/18 12:40 02/05/18 12:40 02/05/18 12:40 02/05/18 12:40 General appearance: Present: no acute distress - Head Head Exam: Present: normal inspection, normocephalic - Respiratory Additional comments: Expiratory wheezes throughout all lung zayas. 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 Small necrotic ulcer to 3rd left toe - Neurological Exam Additional comments: Oriented to name and place only. Can follow simple commands and answer simple questions. - Skin Skin exam: Present: dry, pallor, warm Internal Medicine - CN: Reslt - Labs CBC & Chem 7: 02/05/18 03:52 02/05/18 03:52 Labs: Short CBC 02/05/18 Range/Units 03:52 WBC 24.5 H (4.3-11.1) K/mcL Hgb 9.5 L (12.9-16.9) g/dL Hct 33.3 L (37.5-50.1) % Plt Count 423 H (140-400) K/mcL Neutrophils # 20.9 H (1.6-8.9) K/mcL BMP 02/05/18 03:52 Sodium 148 H Potassium 4.4 Chloride 114 H Carbon Dioxide 26 BUN 68 H Creatinine 2.14 H Glucose 77 Calcium 8.5 L - ABG Interpretation ABG results: ABG ABG pH 7.27 pH Units (7.32-7.45) L 02/04/18 05:53 ABG pCO2 61 mmHg (35-45) H 02/04/18 05:53 ABG pO2 63 mmHg (85-104) L 02/04/18 05:53 ABG O2 Saturation 88 % (95-98) L 02/04/18 05:53 PT/INR, D-dimer PT 65.0 Seconds (9.4-12.1) H* 02/05/18 03:52 Consult Discharge Plan - Plan Referrals: Jaleel Guevara MD [Primary Care Provider] - Palliative Quality Palliative Quality: Screen for Code Status: Yes, Screen for Goals of Care: Yes, Screen for Pain: Yes, If Pain Regimen Started, Initiate Bowel Regimen: NA, Screen for Nausea/Vomitting: Yes Code Status: 02/02/18 15:56 Resuscitation Status: Active [RES] Routine Comment: Resuscitation Status: Full Code 02/02/18 17:39 Resuscitation Status: Active [RES] Routine Comment: Resuscitation Status: [id number]
--- NOTE | 2018-02-05 16:28 | Event Note ---
Date of Encounter: 02/05/18 Time of Encounter: 16:23 After palliative spoke with family and they decided to change patient to DNR comfort care. Due to this we are leaving antibiotics than stopping all other invasive modalities this includes IR doing their procedure. Patient will be transferred out of the ICU to a floor bed and sign out was given to the hospitalist. Care is been transferred to hospitalist care.
[2018-02-05] MEDS ORDERED: *HR* OxyCODONE Immed Rel 5 MG TABLET PO PRN (17:42)
[2018-02-05] MEDS ORDERED: Aminoglycoside Consult 1 EACH MC ONE (17:49)
--- NOTE | 2018-02-05 18:00 | Electrocardiograph Report ---
[address] [place] [address] Test Date: 2018-02-03 Pat Name: Lopez Hirsch Department: 109 Room: 2A38 Gender: M Director Of Dietary: EDGAR : 1935 Requested By: Kenzie Sanchez Order Number: [id number] Reading MD: Diogenes Otto Measurements Intervals [place] Rate: 128 P: TX: 0 QRS: 3 QRSD: 101 T: -61 QT: 311 QTc: 387 Interpretive Statements ATRIAL FIBRILLATION WITH RAPID VENTRICULAR RESPONSE LOW QRS VOLTAGE INFERIOR MYOCARDIAL INFARCTION, OF INDETERMINATE AGE ANTEROSEPTAL MYOCARDIAL INFARCTION, PROBABLY OLD Electronically Signed On 02-05-2018 17:59:13 EDT by Diogenes Otto
[2018-02-05] MEDS ORDERED: NON-FORMULARY MEDICATION 1 EACH EACH (Bimatoprost [Lumigan] 1 DROP) OP SCH (21:00)
[2018-02-06] MEDS: Piperacillin/Tazobactam 3.375 GM in 0.9 % Sodium Chloride Mini Bag 100 ML IVPB SCH ×2 (00:14→09:50)
[2018-02-06] MEDS: Ipratropium/Albuterol Neb 3 ML AER SCH ×4 (03:41→15:52)
[2018-02-06] MEDS ORDERED: Pantoprazole 40 MG VIAL IVP SCH (07:30)
--- NOTE | 2018-02-06 08:11 | Discharge Summary ---
Orders not resulted at time of discharge: Pending orders 02/03/18 08:51 Cytology [PTH] Routine 02/03/18 09:50 AFB Culture, Respiratory [TB] Routine AFB Culture, Respiratory [TB] Routine AFB Smear [TB] Routine AFB Smear [TB] Stat Culture,Respiratory [RM] Routine Fungal Culture [MYC] Routine Fungal Culture [MYC] Routine Legionella Culture [RM] Routine Legionella Culture [RM] Routine 02/06/18 08:03 Basic Metabolic Panel Routine Complete Blood Count [HEME] Routine Date of Encounter: 02/06/18 Hospital course: Mr. Hirsch is a 82 year old male - Time Spent with Patient Total time spent providing and/or coordinating discharge services: - Discharge Medications Home Medications: Glimepiride [Amaryl] 2 mg PO 0800 01/21/16 [History] Acetaminophen [Non-Aspirin] 325 mg PO Q6H PRN 02/02/18 [History] Aspirin [Lo-Dose Aspirin EC] 81 mg PO DAILY 02/02/18 [History] Brinzolamide/Brimonidine Tart [Simbrinza 1%-0.2% Eye Drops] 1 drop OP DAILY [History] Cyanocobalamin (B-12) [Vitamin B12] 2,000 mcg PO QAM 02/02/18 [History] Furosemide [Lasix] 40 mg PO DAILY 02/02/18 [History] Gabapentin [Neurontin] 300 mg PO 0800,1300 02/02/18 [History] Gabapentin [Neurontin] 600 mg PO HS 02/02/18 [History] HYDROcodone/Acet 7.5/325 mg [[place] 7.5-325 mg] 1 tab PO Q8H PRN 02/02/18 [ History] Insulin ASPART [Novolog Flexpen] 0 unit SQ TID PRN 02/02/18 [History] Ipratropium/Albuterol Neb [Duoneb] 3 ml IH Q4HR 02/02/18 [History] Polyethylene Glycol 3350 [MiraLAX Powder Bulk 17.9 Oz] 1 scoop PO DAILY [History] Sennosides/Docusate Sodium [Senna Plus] 1 each PO DAILY 02/02/18 [History] Simvastatin [Zocor] 5 mg PO HS 02/02/18 [History] Timolol [Betimol] 1 drop OP BID 02/02/18 [History] cefTRIAXone [Rocephin] 1,000 mg IVPB DAILY 02/02/18 [History] levoFLOXacin [Levaquin] 500 mg PO DAILY 02/02/18 [History] Allergies/Adverse Reactions: 3 Allergy/AdvReac Type Severity Reaction Status Date / Time No Known Allergies Allergy Verified 01/21/16 09:12 Date of admission: 02/02/18 15:46 Primary care physician: Jaleel Guevara MD Consults: 02/02/18 16:05 Consult to Invasive Line Access Team [CONS] Routine Reason for Consult: poor access Line Type: EPIV 02/03/18 10:03 Consult to Nutrition [CONS] Routine Comment: Consulting Provider: NUTRITION Reason for Dietary Consult: MST Score Consult to Salsa Dance Instructor [CONS] Routine Reason for SW Consult: Has been a senior living patient at [facility] for last 5 years. 02/05/18 07:00 Consult to Interventional Radiology [CONS] Routine Consulting Provider: Radiology Interventional Cols Reason for Consult: loculated effusion, for Monday Time Notified: 09:57 Call Completed: No 02/05/18 11:41 Consult to Palliative Care [CONS] Routine Comment: Consulting Provider: Palliative Care Julia Reason for Consult: goals of care talk with family Time Notified: 11:43 Call Completed: Yes - Constitutional Vitals: Temp Pulse Resp BP Pulse Ox 97.9 F 60 18 151/83 100 02/06/18 07:51 02/06/18 07:51 02/06/18 07:51 02/06/18 07:51 02/06/18 07:51 - Patient Status Disposition: Hospice - Medical Facility Condition: Fair - Discharge Instructions Follow Up With: Jaleel Guevara MD [Primary Care Provider] - Forms: ED Satisfaction Letter - VTE Documentation of Mechanical Device: Intermittent pneumatic compression device
[2018-02-06 08:44] LABS: Eosinophils % 0.1 %; Mean Corpuscular HGB Conc 28.7 g/dL (31.6-35.5)
[2018-02-06 08:46] LABS: Basophils # 0.2 K/mcL (0.0-0.2); Basophils % 0.7 %; Hematocrit 33.4 % (37.5-50.1); Hemoglobin 9.6 g/dL (12.9-16.9); Immature Granulocytes % 6.4 % (0-4); Lymphocytes # 0.8 K/mcL (0.6-4.6); Mean Corpuscular Hemoglobin 28.4 pg (28.0-33.3); Mean Corpuscular Volume 98.8 fL (83.0-100.0); Mean Platelet Volume 11.8 fL (9.4-12.4); Monocytes # 0.6 K/mcL (0.0-1.3); Monocytes % 2.2 %; Neutrophils # 23.5 K/mcL (1.6-8.9); Nucleated Red Blood Cells 0.1 /100 WBC (0); Platelet Count 401 K/mcL (140-400); Red Blood Count 3.38 M/mcL (4.19-5.50); Red Cell Distribution Width 15.9 % (11.5-14.5); Segmented Neutrophils % 87.6 %
[2018-02-06 08:54] LABS: Calcium 8.7 mg/dL (8.6-10.3); Potassium 4.1 mEq/L (3.5-5.1)
[2018-02-06] MEDS ORDERED: Gabapentin 100 MG CAPSULE PO SCH (09:00)
[2018-02-06 09:20] LABS: Platelet Estimate Normal (Normal)
--- NOTE | 2018-02-06 09:40 | Palliative Progress Note ---
Date of Encounter: 02/06/18 Time of Encounter: 09:35 - Assessment and plan (1) Generalized pain Current Visit: Yes Status: Acute Assessment and plan: Has low dose Oxycodone available if needed. Has not utilized x 24 hours. (2) Advance care planning Current Visit: Yes Status: Acute Assessment and plan: Per family meeting with daughter Destini DIAZ and son Dominic yesterday - patient to discharge back to [facility] with [facility] enrollment whenever OK with hospitalist. D/W Dr. Hutchison. Daughter will be coming in after dr appointment this afternoon. I will notify [facility] when pt discharge is in. (3) Acute kidney injury Current Visit: Yes Status: Acute (4) Leukocytosis Current Visit: Yes Status: Acute Qualifiers: Leukocytosis type: unspecified Qualified Code(s): D72.829 - Elevated white blood cell count, unspecified (5) Sepsis due to pneumonia Current Visit: Yes Status: Acute - Time Spent With Patient Total time spent is greater than 50% in coordination of care (as documented) at patient's floor/unit and/or counseling patient: - Subjective Interval history: Patient awakens easily, pleasantly confused. Can follow some simple commands. States he is hungry and wants "hurst and eggs". Moist cough. Denies pain or discomfort. - Constitutional Vitals: Abnormal lab results WBC 26.8 K/mcL (4.3-11.1) H 02/06/18 08:20 RBC 3.38 M/mcL (4.19-5.50) L 02/06/18 08:20 Hgb 9.6 g/dL (12.9-16.9) L 02/06/18 08:20 Hct 33.4 % (37.5-50.1) L 02/06/18 08:20 MCHC 28.7 g/dL (31.6-35.5) L 02/06/18 08:20 RDW 15.9 % (11.5-14.5) H 02/06/18 08:20 Plt Count 401 K/mcL (140-400) H 02/06/18 08:20 Immature Gran % 6.4 % (0-4) H 02/06/18 08:20 Band Neutrophils % 20.0 % (0-4) H 02/04/18 03:25 Metamyelocytes % 8.0 % (0) H 02/04/18 03:25 Myelocytes % 2.0 % (0) H 02/04/18 03:25 Promyelocytes % 1.0 % (0) H 02/02/18 14:02 Neutrophils # 23.5 K/mcL (1.6-8.9) H 02/06/18 08:20 Nucleated RBCs/100 WBC 0.1 /100 WBC (0) H 02/06/18 08:20 Toxic Granulation Present (Not Present) A 02/05/18 03:52 Large Platelets Present (Not Present) A 02/04/18 03:25 Immature Plt Fraction 14.5 % (1.1-6.1) H 02/03/18 03:06 Polychromasia 1+ (Not Present) A 02/02/18 14:02 Poikilocytosis 1+ (Not Present) A 02/02/18 14:02 Macrocytosis Present (Not Present) A 02/02/18 14:02 ESR 98 mm/hr (0-10) H 02/02/18 14:02 Haptoglobin 225 mg/dL (30-200) H 02/02/18 14:02 PT 65.0 Seconds (9.4-12.1) H* 02/05/18 03:52 INR 5.8 H* 02/05/18 03:52 Fibrinogen 819 mg/dL (169-393) H* 02/02/18 19:44 ABG pH 7.27 pH Units (7.32-7.45) L 02/04/18 05:53 ABG pCO2 61 mmHg (35-45) H 02/04/18 05:53 ABG pO2 63 mmHg (85-104) L 02/04/18 05:53 ABG HCO3 28 mEq/L (21-27) H 02/04/18 05:53 ABG Total CO2 30 mEq/L (20-26) H 02/04/18 05:53 ABG O2 Saturation 88 % (95-98) L 02/04/18 05:53 Sodium 146 mEq/L (136-145) H 02/06/18 08:20 Chloride 113 mEq/L (98-107) H 02/06/18 08:20 BUN 60 mg/dL (8-23) H 02/06/18 08:20 Creatinine 1.79 mg/dL (0.70-1.30) H 02/06/18 08:20 Est GFR ( Amer) 44 (> 60) L 02/06/18 08:20 Est GFR (Non-Af Amer) 37 (> 60) L 02/06/18 08:20 BUN/Creatinine Ratio 34 (6-26) H 02/06/18 08:20 Calculated Osmolality 318 (280-300) H 02/06/18 08:20 Uric Acid 11.6 mg/dL (2.3-7.6) H 02/02/18 14:02 Phosphorus 5.5 mg/dL (2.7-4.5) H 02/02/18 14:02 Magnesium 2.8 mg/dL (1.6-2.6) H 02/02/18 14:02 AST 12 Units/L (13-39) L 02/02/18 19:44 Troponin I 0.21 ng/mL (< 0.04) H* 02/03/18 03:06 C-Reactive Protein 224 mg/L (Less than 10) H 02/02/18 14:02 Albumin 3.2 g/dL (3.5-5.7) L 02/02/18 19:44 Globulin 3.6 g/dL (2.4-3.5) H 02/02/18 19:44 Albumin/Globulin Ratio 0.9 (1.1-2.2) L 02/02/18 19:44 Urine Color [place] (Yellow) A 02/02/18 13:42 Urine Clarity Turbid (Clear) A 02/02/18 13:42 Ur Specific [place] 1.027 (1.010-1.025) H 02/02/18 13:42 Urine Protein >=1000 mg/dL (Neg-Trace) H 02/02/18 13:42 Urine Glucose (UA) 100 mg/dL (Normal) H 02/02/18 13:42 Urine Ketones Trace mg/dL (Negative) H 02/02/18 13:42 Urine Bilirubin Moderate (Negative) H 02/02/18 13:42 Urine Urobilinogen 2.0 mg/dL (Normal) H 02/02/18 13:42 Ur Leukocyte Esterase Small (Negative) H 02/02/18 13:42 Urine Microscopic WBC 50-100 per hpf (0-3) H 02/02/18 13:42 Ur Squamous Epith Cells Many per lpf (None-Few) H 02/02/18 13:42 Fluid Appearance Cloudy (Clear) A 02/03/18 09:50 General appearance: Present: no acute distress - Respiratory Additional comments: Rhonchi throughout anterior chest - Cardiovascular Cardiovascular exam: Present: irregular rhythm - GI/Abdominal GI/Abdominal exam: Present: normal bowel sounds, soft - Extremities Exam Additional comments: 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, s/p left great toe amputation - Neurological Exam Additional comments: Alert, pleasantly confused - Psychiatric Psychiatric exam: Present: normal affect, normal mood - Skin Skin exam: Present: dry, pallor, warm Palliative Quality Palliative Quality: Screen for Code Status: Yes, Screen for Goals of Care: Yes, Screen for Pain: Yes, If Pain Regimen Started, Initiate Bowel Regimen: NA, Screen for Nausea/Vomitting: Yes Code Status: 02/02/18 15:56 Resuscitation Status: Active [RES] Routine Comment: Resuscitation Status: Full Code 02/02/18 17:39 Resuscitation Status: Active [RES] Routine Comment: Resuscitation Status: [id number] 02/05/18 15:56 DNR [Resuscitation Status: Active] [RES] Routine Comment: Resuscitation Status: DNR-Comfort Care - Labs CBC & Chem 7: 02/06/18 08:20 02/06/18 08:20 Labs: Laboratory Results - last 24 hr 02/02/18 02/05/18 02/05/18 19:44 05:58 11:19 WBC RBC Hgb Hct MCV MCH MCHC RDW Plt Count MPV Immature Gran % Seg Neutrophils % Lymphocytes % Monocytes % Eosinophils % Basophils % Neutrophils # Lymphocytes # Monocytes # Eosinophils # Basophils # Nucleated RBCs/100 WBC Platelet Estimate Sodium Potassium Chloride Carbon Dioxide BUN Creatinine Est GFR ( Amer) Est GFR (Non-Af Amer) BUN/Creatinine Ratio Glucose POC Glucose 60 L 71 Calculated Osmolality Calcium Blood Type A POSITIVE Antibody Screen NEGATIVE 02/06/18 02/06/18 08:20 08:20 WBC 26.8 H RBC 3.38 L Hgb 9.6 L Hct 33.4 L MCV 98.8 MCH 28.4 MCHC 28.7 L RDW 15.9 H Plt Count 401 H MPV 11.8 Immature Gran % 6.4 H Seg Neutrophils % 87.6 Lymphocytes % 3.0 Monocytes % 2.2 Eosinophils % 0.1 Basophils % 0.7 Neutrophils # 23.5 H Lymphocytes # 0.8 Monocytes # 0.6 Eosinophils # 0.0 Basophils # 0.2 Nucleated RBCs/100 WBC 0.1 H Platelet Estimate Normal Sodium 146 H Potassium 4.1 Chloride 113 H Carbon Dioxide 24 BUN 60 H Creatinine 1.79 H Est GFR ( Amer) 44 L Est GFR (Non-Af Amer) 37 L BUN/Creatinine Ratio 34 H Glucose 76 POC Glucose Calculated Osmolality 318 H Calcium 8.7 Blood Type Antibody Screen - ABG Interpretation ABG results: ABG ABG pH 7.27 pH Units (7.32-7.45) L 02/04/18 05:53 ABG pCO2 61 mmHg (35-45) H 02/04/18 05:53 ABG pO2 63 mmHg (85-104) L 02/04/18 05:53 ABG O2 Saturation 88 % (95-98) L 02/04/18 05:53 PT/INR, D-dimer PT 65.0 Seconds (9.4-12.1) H* 02/05/18 03:52 Consult Discharge Plan - Plan Referrals: Jaleel Guevara MD [Primary Care Provider] -
[2018-02-06] MEDS ORDERED: Sennosides 8.6 MG TABLET PO SCH (10:00)
[2018-02-06] MEDS ORDERED: Dextrose Gel 15 GM/37.5 ML TUBE PO PRN ×2 (10:31)
[2018-02-06] MEDS ORDERED: *HR* Dextrose 50 % in Water (Syg) 50 ML SYRINGE IVP PRN (10:31)
[2018-02-06] MEDS ORDERED: D5% in Water 1,000 ML IVC PRN (10:31)
--- NOTE | 2018-02-06 11:09 | Event Note ---
Date of Encounter: 02/06/18 Time of Encounter: 11:05 Hospice medical center representative [id number] attestation: Hospice benefit. Start: Benefit. Number 5, commencing 02/06/2018 Hospice benefit. Ending 04/06/2018 Palliative performance scale: 30% History: She with history of severe COPD and now with pneumonia complicated by a large empyema area and family and patient have decided against having a chest tube placed to drain the empyema no further aggressive care will be entertained, white count continues to be quite elevated although it is better than it was blood gas still shows an elevated PCO2 well as a low oxygen and my [id number] physical exam the patient still has a lot of rhonchi, and decreased lung sounds and due to this I believe that These findings support a life expectancy of 6 months or less. I attest that I have compose the above narrative based on my review of the patient's medical records, and or on my examination of the patient. Patient was seen personally by myself this morning. Ortiz Prieto M.D. Associate emergency medical services coordinator. [facility]
--- NOTE | 2018-02-06 14:43 | Discharge Summary ---
- NOTES TO OUTPATIENT PROVIDER Notes to Outpatient Provider: none Orders not resulted at time of discharge: Pending orders 02/03/18 09:50 AFB Culture, Respiratory [TB] Routine AFB Culture, Respiratory [TB] Routine AFB Smear [TB] Routine AFB Smear [TB] Stat Culture,Respiratory [RM] Routine Fungal Culture [MYC] Routine Fungal Culture [MYC] Routine Legionella Culture [RM] Routine Legionella Culture [RM] Routine Date of Encounter: 02/06/18 Time of Encounter: 13:00 Hospital course: Patient is an 82-year-old male with past medical history significant for atrial fibrillation, cancer, DVT, diabetes, GERD, hyperlipidemia, hypertension, myocardial infarction and pulmonary embolus who presented to the ER around [facility] on 02/02/18 due to altered mental status. Patient was recently diagnosed and managed for pneumonia on IV Rocephin and Levaquin. In the ER, patient was found to have supratherapeutic INR, acute renal failure in addition to respiratory acidosis. VQ scan was done which showed a large mismatch on the left side due to effusion and loculation. Patient was placed on BiPAP and was admitted to the ICU for further management. During patients hospital stay, he was treated for sepsis secondary to pneumonia with IV vancomycin and IV Zosyn. Bronchoscopy was done per pulmonology recommendations and cultures came back positive for MRSA and vancomycin was changed to linezolid; Zosyn was discontinued. Patient also went into atrial fibrillation with RVR during hospital stay placed on Cardizem drip. Palliative care was consulted and patient has decided to withdraw all care as he is tired and ready to move on to be with his who is . IV antibiotics will be discontinued and patient will be discharged to [facility] with hospice. - Time Spent with Patient Total time spent providing and/or coordinating discharge services: Less than 30 minutes - Discharge Medications Prescriptions: LORazepam Oral Conc [Ativan Oral Conc] 0.5 mg PO Q6HR PRN 7 Days #30 mls PRN Reason: Anxiety Gabapentin [Neurontin] 600 mg PO HS #10 tablet Gabapentin [Neurontin] 300 mg PO 0800,1300 #10 capsule HYDROcodone/Acet 7.5/325 mg [[place] 7.5-325 mg] 1 tab PO Q8H PRN 5 Days #18 tablet PRN Reason: Pain MORPHINE SUL Oral CONC [Roxanol Oral Conc] 5 mg PO Q4H PRN 7 Days #30 oral.syg PRN Reason: breakthrough pain/dyspnea Home Medications: Glimepiride [Amaryl] 2 mg PO 0800 01/21/16 [History] Brinzolamide/Brimonidine Tart [Simbrinza 1%-0.2% Eye Drops] 1 drop OP DAILY [History] Furosemide [Lasix] 40 mg PO DAILY 02/02/18 [History] Insulin ASPART [Novolog Flexpen] 0 unit SQ TID PRN 02/02/18 [History] Polyethylene Glycol 3350 [MiraLAX Powder Bulk 17.9 Oz] 1 scoop PO DAILY [History] Sennosides/Docusate Sodium [Senna Plus] 1 each PO DAILY 02/02/18 [History] Timolol [Betimol] 1 drop OP BID 02/02/18 [History] Gabapentin [Neurontin] 300 mg PO 0800,1300 #10 capsule 02/06/18 [Rx] Gabapentin [Neurontin] 600 mg PO HS #10 tablet 02/06/18 [Rx] HYDROcodone/Acet 7.5/325 mg [[place] 7.5-325 mg] 1 tab PO Q8H PRN 5 Days #18 tablet 02/06/18 [Rx] LORazepam Oral Conc [Ativan Oral Conc] 0.5 mg PO Q6HR PRN 7 Days #30 mls [Rx] MORPHINE SUL Oral CONC [Roxanol Oral Conc] 5 mg PO Q4H PRN 7 Days #30 oral.syg 02/06/18 [Rx] Polyethylene Glycol 3350 [MiraLAX] 17 gm PO DAILY powd.pack 02/06/18 [Rx] Allergies/Adverse Reactions: 3 Allergy/AdvReac Type Severity Reaction Status Date / Time No Known Allergies Allergy Verified 01/21/16 09:12 Date of admission: 02/02/18 15:46 Primary care physician: Jaleel Guevara MD Consults: 02/02/18 16:05 Consult to Invasive Line Access Team [CONS] Routine Reason for Consult: poor access Line Type: EPIV 02/03/18 10:03 Consult to Nutrition [CONS] Routine Comment: Consulting Provider: NUTRITION Reason for Dietary Consult: MST Score Consult to Operating Room Surgical Technician [CONS] Routine Reason for SW Consult: Has been a retirement patient at [facility] for last 5 years. 02/05/18 07:00 Consult to Interventional Radiology [CONS] Routine Consulting Provider: Radiology Holly Cols Reason for Consult: loculated effusion, for Monday Time Notified: 09:57 Call Completed: No 02/05/18 11:41 Consult to Palliative Care [CONS] Routine Comment: Consulting Provider: Palliative Care Julia Reason for Consult: goals of care talk with family Time Notified: 11:43 Call Completed: Yes - Constitutional Vitals: Temp Pulse Resp BP Pulse Ox 97.8 F 74 17 115/68 98 02/06/18 12:02 02/06/18 12:02 02/06/18 12:02 02/06/18 12:02 02/06/18 12:02 General appearance: Present: no acute distress - Cardiovascular Cardiovascular exam: Present: RRR, +S1, +S2. Absent: diastolic murmur, gallop, rubs, systolic murmur - Patient Status Disposition: Hospice - Medical Facility Condition: Fair - Discharge Instructions Instructions: Acute Kidney Injury (DC), Sepsis (DC) Follow Up With: Jaleel Guevara MD [Primary Care Provider] - Forms: ED Satisfaction Letter - VTE Documentation of Mechanical Device: Intermittent pneumatic compression device
--- NOTE | 2018-02-06 14:44 | Physician Discharge Referral ---
ExtendedCare Referral Info Transfer To: [facility] with hospice - Transfer Medications Prescriptions: Gabapentin [Neurontin] 600 mg PO HS #10 tablet Gabapentin [Neurontin] 300 mg PO 0800,1300 #10 capsule HYDROcodone/Acet 7.5/325 mg [[place] 7.5-325 mg] 1 tab PO Q8H PRN 5 Days #18 tablet PRN Reason: Pain Home Medications: Glimepiride [Amaryl] 2 mg PO 0800 01/21/16 [History] Brinzolamide/Brimonidine Tart [Simbrinza 1%-0.2% Eye Drops] 1 drop OP DAILY [History] Furosemide [Lasix] 40 mg PO DAILY 02/02/18 [History] Insulin ASPART [Novolog Flexpen] 0 unit SQ TID PRN 02/02/18 [History] Polyethylene Glycol 3350 [MiraLAX Powder Bulk 17.9 Oz] 1 scoop PO DAILY [History] Sennosides/Docusate Sodium [Senna Plus] 1 each PO DAILY 02/02/18 [History] Timolol [Betimol] 1 drop OP BID 02/02/18 [History] Gabapentin [Neurontin] 300 mg PO 0800,1300 #10 capsule 02/06/18 [Rx] Gabapentin [Neurontin] 600 mg PO HS #10 tablet 02/06/18 [Rx] HYDROcodone/Acet 7.5/325 mg [[place] 7.5-325 mg] 1 tab PO Q8H PRN 5 Days #18 tablet 02/06/18 [Rx] Polyethylene Glycol 3350 [MiraLAX] 17 gm PO DAILY powd.pack 02/06/18 [Rx] Allergies/Adverse Reactions: 3 Allergy/AdvReac Type Severity Reaction Status Date / Time No Known Allergies Allergy Verified 01/21/16 09:12 - Respiratory Orders Smoking Cessation: Smoking cessation has been advised. For more information, call the [place] Tobacco Quit Line at 1-262-PIXM-NOW. CERTIFICATION: I certify that the transfer of the above named patient to an Extended Care Facility is necessary for the continuing treatment of the diagnosis listed. The above information is true and accurate reflection of patient's current condition. Confidential - Redisclosure prohibited without a patient's written consent.
[2018-02-06 15:05] VITALS: BP 105/76
== END 2018-02-06 17:50 | disposition hospice, inpatient (51) | DRG 853 ==
LOC: EMEROO 13:02 → ICNU 15:46 → 2ANU 02-05 17:00
PROVIDERS: ADMIT Internal Medicine Pulmonary Disease; ATTEND Internal Medicine Pulmonary Disease